=== PATIENT | female | born 1930 | race Caucasian/White ===

== ENCOUNTER 2017-08-07 09:56 | Emergency (ER) | payer MEDICARE, OTHER ==
[2017-08-07 12:14] LABS: Hematocrit 42 % (35-47); Hemoglobin 14.2 g/dl (12.0-16.0); Mean Corpuscular HGB Conc 34 g/dl (31-36); Mean Corpuscular Hemoglobin 31 pg (27-31); Mean Corpuscular Volume 90 fL (80-97); Mean Platelet Volume 9 um3 (7.4-10.4); Red Blood Count 4.65 10^6/ul (4.0-5.4); Red Cell Distribution Width 15 % (10.5-15); White Blood Count 8.6 10^3/ul (3.5-10.8)
--- NOTE | 2017-08-07 12:17 | RAD ---
INDICATION: Anxiety and confusion COMPARISON: Most recent comparison chest x-ray is dated December 12, 2014 TECHNIQUE: Single AP portable view of the chest was obtained. FINDINGS: Image quality is compromised due to the relative inferiority of a portable chest x-ray. The heart and mediastinum exhibit normal size and contour. The lungs are grossly clear. There is no evidence of a large pleural effusion. Visualized bones are normal for the patient's age. IMPRESSION: No radiographic evidence for acute cardiopulmonary abnormality on this portable chest x-ray.
[2017-08-07 12:33] LABS: ALT 18 U/L (7-52); AST 20 U/L (13-39); Albumin 4.2 g/dL (3.2-5.2); Alkaline Phosphatase 97 U/L (34-104); Anion Gap 8 mmol/L (2-11); BUN/Creatinine Ratio 25.2 (8-20); Blood Urea Nitrogen 27 mg/dL (6-24); CO2 Carbon Dioxide 26 mmol/L (22-32); Calcium 9.9 mg/dL (8.6-10.3); Chloride 104 mmol/L (101-111); Creatine Kinase 87 U/L (10-223); EGFR African American 62.5 (>60); EGFR Non-African American 48.6 (>60); Globulin 2.7 g/dL (2-4); Glucose 129 mg/dL (70-100); Potassium 3.6 mmol/L (3.5-5.0); Sodium 138 mmol/L (133-145); Total Protein 6.9 g/dL (6.4-8.9)
[2017-08-07 12:45] LABS: Alcohol < 10 mg/dL (<10)
--- NOTE | 2017-08-07 13:24 | RAD ---
INDICATION: Altered mental status COMPARISON: Similar CT of the brain December 10, 2013 TECHNIQUE: Contiguous axial sections of the brain were obtained from the skull base to the vertex without contrast. FINDINGS: The ventricles, cisterns and sulci mild symmetrical involutional changes. There is mild periventricular and subcortical white matter hypoattenuation, similar in appearance to the prior CT the brain and most consistent with chronic microvascular disease. The juarez-white matter differentiation is adequately maintained and there is no sulcal effacement. No significant focal abnormality or mass effect is present. There is no evidence for intracranial hemorrhage. No significant focal osseous abnormality is present. The visualized portion of the paranasal sinuses and mastoid air cells appear clear. IMPRESSION: Stable appearing chronic findings as described above without CT apparent acute intracranial abnormality.
[2017-08-07 14:33] LABS: Urine Bacteria Absent (Absent); Urine Bilirubin Negative (Negative); Urine Glucose Negative (Negative); Urine Nitrite Negative (Negative)
[2017-08-07 14:36] VITALS: BP 141/82
--- NOTE | 2017-08-08 08:30 | ED ---
Hernan Thorpe Nikita, scribed for Zach Hoyos MD on 08/07/17 at 1056 . Complex/Multi-Sys Presentation - HPI Summary HPI Summary: This patient is an 87 year old F presenting to ED with a chief complaint of discomfort since last night at 2100 to this morning. The patient rates the pain 0/10 in severity. Symptoms aggravated by nothing. Symptoms alleviated by nothing. Patient reports confusion and anxiety. Pt reports she couldnt sleep last night. Patient denies a cough, fever, chills, dysuria, frequent urination, diarrhea, recent weakness, neck pain, back pain, abdominal pain, and swelling in legs bilaterally. Pt reports this is the first episode of this severity. Pt is not on any new medications. - History Of Current Complaint Chief Complaint: EDGeneral Time Seen by Provider: 08/07/17 10:18 Hx Obtained From: Patient Onset/Duration: Sudden Onset, Lasting Days, Resolved Severity Currently: None Aggravating Factor(s): nothing Alleviating Factor(s): nothing Associated Signs And Symptoms: Positive: Other - Pt reports she couldnt sleep last night. Patient denies a cough, fever, chills, dysuria, frequent urination, diarrhea, recent weakness, neck pain, back pain, abdominal pain, and swelling in legs bilaterally. - Allergies/Home Medications Allergies/Adverse Reactions: Allergies Allergy/AdvReac Type Severity Reaction Status Date / Time Alendronate [From Fosamax] Allergy Swelling Verified 08/07/17 10:06 PMH/Surg Hx/FS Hx/Imm Hx Endocrine/Hematology History: Reports: Hx Diabetes, Hx Thyroid Disease - takes med but denies Cardiovascular History: Reports: Hx Hypertension Denies: Hx Pacemaker/ICD Respiratory History: Denies: Hx Asthma, Hx Chronic Obstructive Pulmonary Disease (COPD) GI History: Denies: Hx Ulcer History: Denies: Hx Dialysis, Hx Renal Disease Musculoskeletal History: Denies: Hx Osteoporosis Sensory History: Denies: Hx Hearing Aid Psychiatric History: Denies: Hx Panic Disorder - Cancer History Hx Chemotherapy: No Hx Radiation Therapy: No - Surgical History Surgery Procedure, Year, and Place: 1971- HYSTERECTOMY. 2007 - GALLBLADDER. 2011 [facility] -Lt EYE- FOR GLAUCOMA. cataracts. CARDIAC CATHS- NO STENTING. TONSILS Infectious Disease History: No Infectious Disease History: Denies: Hx Clostridium Difficile, Hx Hepatitis, Hx Human Immunodeficiency Virus (HIV), Hx of Known/Suspected MRSA, Hx Shingles, Hx Tuberculosis, Hx Known/ Suspected VRE, Hx Known/Suspected VRSA, History Other Infectious Disease, Traveled Outside the [place] in Last 30 Days - Family History Known Family History: Positive: Cardiac Disease, Hypertension - Social History Alcohol Use: None Substance Use Type: Reports: None Smoking Status (MU): Former Smoker Type: Cigarettes Have You Smoked in the Last Year: No Review of Systems Negative: Fever, Chills Negative: Cough Negative: Abdominal Pain, Diarrhea Negative: dysuria, frequency Positive: Other - denies neck pain, back pain, and swelling in legs bilaterally Neurological: Other - confusion Negative: Weakness Positive: Anxious All Other Systems Reviewed And Are Negative: Yes Physical Exam - Summary Physical Exam Summary: GENERAL: ~Patient is a well-developed and nourished (MALE OR FEMALE) who is lying comfortable in the stretcher. ~Patient is not in any acute respiratory distress. HEAD AND FACE: No signs of trauma. ~No ecchymosis, hematomas or skull depressions. No sinus tenderness. EYES: PERRLA, EOMI x 2, No injected conjunctiva, no nystagmus. EARS: Hearing grossly intact. Ear canals and tympanic membranes are within normal limits. MOUTH: Oropharynx within normal limits. NECK: Supple, trachea is midline, no adenopathy, no JVD, no carotid bruit, no c- spine tenderness, neck with full ROM. CHEST: Symmetric, no tenderness at palpation LUNGS: Clear to auscultation bilaterally. No wheezing or crackles. CVS: Regular rate and rhythm, S1 and S2 present, no murmurs or gallops appreciated. ABDOMEN: Soft, non-tender. No signs of distention. No rebound no guarding, and no masses palpated. Bowel sounds are normal. EXTREMITIES: FROM in all major joints, no edema, no cyanosis or clubbing. NEURO: Alert and oriented x 3. No acute neurological deficits. Speech is normal and follows commands. SKIN: Dry and warm Triage Information Reviewed: Yes Vital Signs On Initial Exam: Initial Vitals Temp Pulse Resp BP Pulse Ox 97.1 F 64 16 170/60 98 08/07/17 10:02 08/07/17 10:02 08/07/17 10:02 08/07/17 10:02 08/07/17 10:02 Vital Signs Reviewed: Yes - Divya Coma Scale Coma Scale Total: 15 Diagnostics - Vital Signs Vital Signs Temp Pulse Resp BP Pulse Ox 08/07/17 10:02 97.1 F 64 16 170/60 98 - Laboratory Result Diagrams: 08/07/17 11:52 08/07/17 11:52 Lab Statement: Any lab studies that have been ordered have been reviewed, and results considered in the medical decision making process. - Radiology CXR Radiology Interpretation Completed By: Radiologist - No radiographic evidence for acute cardiopulmonary abnormality on this portable chest x-ray. ED physician has reviewed this radiology report and agrees. - CT Brain CT CT Interpretation Completed By: Radiologist - Stable appearing chronic findings as described above without CT apparent acute intracranial abnormality. ED physician has reviewed this radiology report and agrees. - EKG 1204 Cardiac Rate: Bradycardia - 57 bpm EKG Interpretation: no ST elevations, Q wave in II and AVF Re-Evaluation - Re-Evaluation First Eval Re-Evaluation Time: 14:50 Comment: Discussed with pt about discharge plan. Complex Multi-Symp Course/Dx Assessment/Plan: This patient is an 87 year old F presenting to ED with a chief complaint of discomfort since last night at 2100 to this morning. The patient rates the pain 0/10 in severity. Symptoms aggravated by nothing. Symptoms alleviated by nothing. Patient reports confusion and anxiety. Pt reports she couldnt sleep last night. Patient denies a cough, fever, chills, dysuria, frequent urination, diarrhea, recent weakness, neck pain, back pain, abdominal pain, and swelling in legs bilaterally. Brain CT reveals stable appearing chronic findings as described above without CT apparent acute intracranial abnormality. CXR reveals no radiographic evidence for acute cardiopulmonary abnormality on this portable chest x-ray. ED physician has reviewed this radiology report and agrees. EKG reveals sinus bradycardia at 57 bpm, no ST elevations, and Q wave in II and AVF. Blood work is without significant abnormalities except for increase in BUN and creatinine, possibly secondary to dehydration. Urinalysis is negative for UTI. Head CT shows no acute intracranial pathology. Since pt is asymptomatic, pt will be staying with family members. Pt will be discharged home with f/u with PCP. - Diagnoses Provider Diagnoses: Confusion Discharge - Discharge Plan Condition: Stable Disposition: HOME Patient Education Materials: Altered Mental Status (ED) Referrals: Tim Navarro MD [Primary Care Provider] - 3 Days The documentation as recorded by the Hernan loco Nikita accurately reflects the service I personally performed and the decisions made by me, Zach Hoyos MD.
== END 2017-08-07 15:09 | disposition home or self-care (01) ==
LOC: ED 09:56
DX: R41.0 Disorientation, unspecified (principal); F41.9 Anxiety disorder, unspecified; Z87.891 Personal history of nicotine dependence
CPT/HCPCS: 36415; 70450; 71010; 80053; 80320; 81003; 81015; 82140; 82550; 83735; 84443; 84484; 85025; 93005; 99283; G0480

== ENCOUNTER 2017-09-07 12:24 | Emergency (ER) | payer MEDICARE, OTHER ==
[2017-09-07 14:45] LABS: Hematocrit 42 % (35-47); Hemoglobin 13.7 g/dl (12.0-16.0); Mean Corpuscular HGB Conc 33 g/dl (31-36); Mean Corpuscular Hemoglobin 29 pg (27-31); Mean Corpuscular Volume 90 fL (80-97); Mean Platelet Volume 9 um3 (7.4-10.4); Red Blood Count 4.67 10^6/ul (4.0-5.4); Red Cell Distribution Width 14 % (10.5-15); White Blood Count 12.5 10^3/ul (3.5-10.8)
--- NOTE | 2017-09-07 14:53 | RAD ---
HISTORY: Cough, back pain COMPARISONS: August 07, 2017 VIEWS: 4: Frontal dual-energy and lateral views of the chest. FINDINGS: CARDIOMEDIASTINAL SILHOUETTE: The cardiomediastinal silhouette is normal. DAVID: The david are normal. PLEURA: The costophrenic angles are sharp. No pleural abnormalities are noted. LUNG PARENCHYMA: The lungs are clear. ABDOMEN: The upper abdomen is clear. There is no subphrenic gas. BONES AND SOFT TISSUES: No bone or soft tissue abnormalities are noted. OTHER: None. IMPRESSION: NO ACTIVE CARDIOPULMONARY DISEASE.
[2017-09-07 15:01] LABS: BUN/Creatinine Ratio 24.2 (8-20); Calcium 10.1 mg/dL (8.6-10.3); EGFR African American 68.4 (>60); EGFR Non-African American 53.2 (>60); Globulin 3.1 g/dL (2-4); Magnesium 1.8 mg/dL (1.9-2.7); Potassium 3.3 mmol/L (3.5-5.0); Total Bilirubin 0.7 mg/dL (0.2-1.0); Total Protein 7.1 g/dL (6.4-8.9)
--- NOTE | 2017-09-07 15:21 | ED ---
Throat Pain/Nasal Congestion - HPI Summary HPI Summary: 87F presents with cough, sinus congestion, back pain, and fatigue for 5 days. She denies any fever or chills. She states she just feels like she has a cold but wants to be sure. She denies any chest pain or SOB. She denies any abdominal pain, n/v/d. She states cough is dry. She denies any headache, dizziness, AMS, ear pain or sore throat. She states this is not the flu as we got her flu shot. She denies any history of COPD or HTN. She has history of HTN and DM. She has not seen her primary for this yet. She has a normal appetite. She states she did not take her medication or eat anything this morning because she forgot. She states pain in back is near right shoulder blade and started after coughing. She denies any dysuria. She denies any loss of bowel or bladder or saddle anaesthesia. She denies any history of CAD. - History of Current Complaint Chief Complaint: EDGeneral Time Seen by Provider: 09/07/17 13:25 - Allergies/Home Medications Allergies/Adverse Reactions: Allergies Allergy/AdvReac Type Severity Reaction Status Date / Time Alendronate [From Fosamax] Allergy Swelling Verified 08/07/17 10:06 PMH/Surg Hx/FS Hx/Imm Hx Endocrine/Hematology History: Reports: Hx Diabetes, Hx Thyroid Disease - takes med but denies Cardiovascular History: Reports: Hx Hypertension Denies: Hx Pacemaker/ICD Respiratory History: Denies: Hx Asthma, Hx Chronic Obstructive Pulmonary Disease (COPD) GI History: Denies: Hx Ulcer History: Denies: Hx Dialysis, Hx Renal Disease Musculoskeletal History: Denies: Hx Osteoporosis Sensory History: Denies: Hx Hearing Aid Psychiatric History: Denies: Hx Panic Disorder - Cancer History Hx Chemotherapy: No Hx Radiation Therapy: No - Surgical History Surgery Procedure, Year, and Place: 1971- HYSTERECTOMY. 2007 - GALLBLADDER. 2011 [facility] -Lt EYE- FOR GLAUCOMA. cataracts. CARDIAC CATHS- NO STENTING. TONSILS Infectious Disease History: No Infectious Disease History: Denies: Hx Clostridium Difficile, Hx Hepatitis, Hx Human Immunodeficiency Virus (HIV), Hx of Known/Suspected MRSA, Hx Shingles, Hx Tuberculosis, Hx Known/ Suspected VRE, Hx Known/Suspected VRSA, History Other Infectious Disease, Traveled Outside the [place] in Last 30 Days - Family History Known Family History: Positive: Unknown, Cardiac Disease, Hypertension - Social History Alcohol Use: None Substance Use Type: Reports: None Smoking Status (MU): Former Smoker Type: Cigarettes Have You Smoked in the Last Year: No Review of Systems Negative: Fever Negative: Chest Pain Positive: Cough. Negative: Shortness Of Breath Negative: Abdominal Pain Positive: Myalgia - back All Other Systems Reviewed And Are Negative: Yes Physical Exam Triage Information Reviewed: Yes Vital Signs On Initial Exam: Initial Vitals Temp Pulse Resp BP Pulse Ox 98 F 86 18 154/90 97 09/07/17 12:26 09/07/17 12:26 09/07/17 12:26 09/07/17 12:26 09/07/17 12:26 Vital Signs Reviewed: Yes Appearance: Positive: Well-Appearing Skin: Positive: Warm, Dry Head/Face: Positive: Normal Head/Face Inspection Eyes: Positive: Normal, EOMI, FELIX, Conjunctiva Clear ENT: Positive: Normal ENT inspection, Pharynx normal, Nasal congestion, TMs normal. Negative: Sinus tenderness Neck: Positive: Supple, Nontender, No Lymphadenopathy Respiratory/Lung Sounds: Positive: Clear to Auscultation, Breath Sounds Present Cardiovascular: Positive: Normal, RRR Abdomen Description: Positive: Nontender, Soft Bowel Sounds: Positive: Present Musculoskeletal: Positive: Strength/ROM Intact - back, Other - tenderness over right side of upper back, no midline tenderness Neurological: Positive: Normal, Reflexes Intact - biceps Psychiatric: Positive: Normal - [place] Coma Scale Coma Scale Total: 15 Diagnostics - Vital Signs Vital Signs Temp Pulse Resp BP Pulse Ox 09/07/17 12:26 98 F 86 18 154/90 97 - Laboratory Lab Results: Lab Results 09/07/17 09/07/17 09/07/17 Range/Units 14:35 14:35 14:35 WBC 12.5 H (3.5-10.8) 10^3/ul RBC 4.67 (4.0-5.4) 10^6/ul Hgb 13.7 (12.0-16.0) g/dl Hct 42 (35-47) % MCV 90 (80-97) fL MCH 29 (27-31) pg MCHC 33 (31-36) g/dl RDW 14 (10.5-15) % Plt Count 230 (150-450) 10^3/ul MPV 9 (7.4-10.4) um3 Neut % (Auto) 70.1 (38-83) % Lymph % (Auto) 17.4 L (25-47) % Falls % (Auto) 9.2 H (1-9) % Eos % (Auto) 2.7 (0-6) % Baso % (Auto) 0.6 (0-2) % Absolute Neuts (auto) 8.8 H (1.5-7.7) 10^3/ul Absolute Lymphs (auto) 2.2 (1.0-4.8) 10^3/ul Absolute Monos (auto) 1.2 H (0-0.8) 10^3/ul Absolute Eos (auto) 0.3 (0-0.6) 10^3/ul Absolute Basos (auto) 0.1 (0-0.2) 10^3/ul Absolute Nucleated RBC 0 10^3/ul Nucleated RBC % 0 D-Dimer, Quantitative (Less Than 230) ng/mL Sodium 134 (133-145) mmol/L Potassium 3.3 L (3.5-5.0) mmol/L Chloride 98 L (101-111) mmol/L Carbon Dioxide 29 (22-32) mmol/L Anion Gap 7 (2-11) mmol/L BUN 24 (6-24) mg/dL Creatinine 0.99 H (0.51-0.95) mg/dL Est GFR ( Amer) 68.4 (>60) Est GFR (Non-Af Amer) 53.2 (>60) BUN/Creatinine Ratio 24.2 H (8-20) Glucose 120 H (70-100) mg/dL Lactic Acid (0.5-2.0) mmol/L Calcium 10.1 (8.6-10.3) mg/dL Magnesium 1.8 L (1.9-2.7) mg/dL Total Bilirubin 0.70 (0.2-1.0) mg/dL AST 19 (13-39) U/L ALT 14 (7-52) U/L Alkaline Phosphatase 98 (34-104) U/L Troponin I 0.00 (<0.04) ng/mL B-Natriuretic Peptide 47 ( - 100) pg/mL Total Protein 7.1 (6.4-8.9) g/dL Albumin 4.0 (3.2-5.2) g/dL Globulin 3.1 (2-4) g/dL Albumin/Globulin Ratio 1.3 (1-3) Influenza A (Rapid) (Negative) Influenza B (Rapid) (Negative) 09/07/17 09/07/17 09/07/17 Range/Units 14:35 14:35 14:55 WBC (3.5-10.8) 10^3/ul RBC (4.0-5.4) 10^6/ul Hgb (12.0-16.0) g/dl Hct (35-47) % MCV (80-97) fL MCH (27-31) pg MCHC (31-36) g/dl RDW (10.5-15) % Plt Count (150-450) 10^3/ul MPV (7.4-10.4) um3 Neut % (Auto) (38-83) % Lymph % (Auto) (25-47) % Falls % (Auto) (1-9) % Eos % (Auto) (0-6) % Baso % (Auto) (0-2) % Absolute Neuts (auto) (1.5-7.7) 10^3/ul Absolute Lymphs (auto) (1.0-4.8) 10^3/ul Absolute Monos (auto) (0-0.8) 10^3/ul Absolute Eos (auto) (0-0.6) 10^3/ul Absolute Basos (auto) (0-0.2) 10^3/ul Absolute Nucleated RBC 10^3/ul Nucleated RBC % D-Dimer, Quantitative < 200 (Less Than 230) ng/mL Sodium (133-145) mmol/L Potassium (3.5-5.0) mmol/L Chloride (101-111) mmol/L Carbon Dioxide (22-32) mmol/L Anion Gap (2-11) mmol/L BUN (6-24) mg/dL Creatinine (0.51-0.95) mg/dL Est GFR ( Amer) (>60) Est GFR (Non-Af Amer) (>60) BUN/Creatinine Ratio (8-20) Glucose (70-100) mg/dL Lactic Acid 0.8 (0.5-2.0) mmol/L Calcium (8.6-10.3) mg/dL Magnesium (1.9-2.7) mg/dL Total Bilirubin (0.2-1.0) mg/dL AST (13-39) U/L ALT (7-52) U/L Alkaline Phosphatase (34-104) U/L Troponin I (<0.04) ng/mL B-Natriuretic Peptide ( - 100) pg/mL Total Protein (6.4-8.9) g/dL Albumin (3.2-5.2) g/dL Globulin (2-4) g/dL Albumin/Globulin Ratio (1-3) Influenza A (Rapid) Negative (Negative) Influenza B (Rapid) Negative (Negative) Result Diagrams: 09/07/17 14:35 09/07/17 14:35 Lab Statement: Any lab studies that have been ordered have been reviewed, and results considered in the medical decision making process. EENT Course/Dx - Course Course Of Treatment: 87F presents with cough, sinus congestion, back pain, and fatigue for 5 days. She denies any fever or chills. She states she just feels like she has a cold but wants to be sure. She denies any chest pain or SOB. She denies any abdominal pain, n/v/d. She states cough is dry. She denies any headache, dizziness, AMS, ear pain or sore throat. She states this is not the flu as we got her flu shot. She denies any history of COPD or HTN. She has history of HTN and DM. She has not seen her primary for this yet. She has a normal appetite. She states she did not take her medication or eat anything this morning because she forgot. She states pain in back is near right shoulder blade and started after coughing. She denies any history of CAD. on exam nasal congestion present, lungs CTA, tenderness on right side of upper back, no midline tenderness. chest xray normal. labs wbc 12 with no left shift. flu neg. potassium 3.3. patient states did not take vitamins this morning which has potassium. able to tolerate PO intake so will not supplement at this time. bnp, troponin and d-dimer neg. explained likely viral. told to follow up with primary. patient understand and agrees with plan. - Differential Diagnoses Differential Diagnoses: Sinusitis, URI/Bronchitis, Other - CHF - Diagnoses Provider Diagnoses: Upper respiratory infection Discharge - Discharge Plan Condition: Good Disposition: HOME Prescriptions: Benzonatate CAP* [Tessalon 100 MG CAP*] 100 mg PO TID PRN #15 cap PRN Reason: Cough Patient Education Materials: Upper Respiratory Infection (ED) Referrals: Tim Navarro MD [Primary Care Provider] - Additional Instructions: Use Tessalon three times a day for cough Use saline in the nose for nasal congestion Use humidifier or place warm bowls of water around the room for cough Take Tylenol for pain/fever every 6 hours Increase fluid intake and eat small amounts of food as tolerated Follow up with primary with a week Return to ED if develop chest pain , shortness of breath, or any new or worsening symptoms
[2017-09-07 16:21] LABS: Urine Bacteria Absent (Absent); Urine Bilirubin Negative (Negative); Urine Glucose Negative (Negative); Urine Nitrite Negative (Negative)
[2017-09-07 16:40] VITALS: BP 126/90
== END 2017-09-07 16:39 | disposition home or self-care (01) ==
LOC: ED 12:24
DX: J06.9 Acute upper respiratory infection, unspecified (principal); Z87.891 Personal history of nicotine dependence; I10 Essential (primary) hypertension; E11.9 Type 2 diabetes mellitus without complications; E07.9 Disorder of thyroid, unspecified
CPT/HCPCS: 36415; 71020; 80053; 81003; 81015; 83605; 83735; 83880; 84484; 85025; 85379; 87502; 99282

== ENCOUNTER 2017-12-27 20:44 | Emergency (ER) | payer MEDICARE, OTHER ==
[2017-12-27 22:33] VITALS: BP 109/59
--- NOTE | 2017-12-28 03:03 | ED ---
Dinora Thorpe Julia, scribed for Karla Cardozo MD on 12/27/17 at 2223 . Syncope/Near Syncope - HPI Summary HPI Summary: This patient is a 87 year old F [facility] son with due to an episode lasting about 45 seconds where she stopped breathing with subsequent sporadic breathing for an hour afterward. Son states she took 7.5mg of Hydrocodone at 17:00, as prescribed after three tooth extractions today at 15 :00. Her son states she was dizzy and loopy prior to arrival. Patient denies current nausea, pain, and dizziness. She repeats that she is sleepy. Medications reviewed. - History Of Current Complaint Chief Complaint: EDGeneral Time Seen by Provider: 12/27/17 22:15 Hx Obtained From: Patient, Family/Counselor Manager Onset/Duration: Lasting Hours, Still Present, Resolved Timing: Intermittent Episode Lasting - 45 secons - not breathing Context: Witnessed Activity At Onset: At Rest Associated Head Trauma: No Aggravating Factor(s): Other - medication Associated Signs And Symptoms: Other - respiratory symptoms, dizziness - Allergies/Home Medications Allergies/Adverse Reactions: Allergies Allergy/AdvReac Type Severity Reaction Status Date / Time alendronate sodium Allergy Hives Verified 12/27/17 20:53 [From Fosamax] PMH/Surg Hx/FS Hx/Imm Hx Endocrine/Hematology History: Reports: Hx Diabetes, Hx Thyroid Disease - takes med but denies Cardiovascular History: Reports: Hx Hypertension Denies: Hx Pacemaker/ICD Respiratory History: Denies: Hx Asthma, Hx Chronic Obstructive Pulmonary Disease (COPD) GI History: Denies: Hx Ulcer History: Denies: Hx Dialysis, Hx Renal Disease Musculoskeletal History: Denies: Hx Osteoporosis Sensory History: Denies: Hx Hearing Aid Psychiatric History: Denies: Hx Panic Disorder - Cancer History Hx Chemotherapy: No Hx Radiation Therapy: No - Surgical History Surgery Procedure, Year, and Place: 1971- HYSTERECTOMY. 2007 - GALLBLADDER. 2011 [facility] -Lt EYE- FOR GLAUCOMA. cataracts. CARDIAC CATHS- NO STENTING. Tooth extraction, 2018. TONSILS Infectious Disease History: No Infectious Disease History: Denies: Hx Clostridium Difficile, Hx Hepatitis, Hx Human Immunodeficiency Virus (HIV), Hx of Known/Suspected MRSA, Hx Shingles, Hx Tuberculosis, Hx Known/ Suspected VRE, Hx Known/Suspected VRSA, History Other Infectious Disease, Traveled Outside the [place] in Last 30 Days - Family History Known Family History: Positive: Cardiac Disease, Hypertension - Social History Lives: Alone Alcohol Use: None Substance Use Type: Reports: None Smoking Status (MU): Former Smoker Type: Cigarettes Have You Smoked in the Last Year: No Review of Systems Positive: Other - "sleepy" Positive: Other - stopped breathing followed by sporadic breathing Neurological: Other - dizziness, currently resolved All Other Systems Reviewed And Are Negative: Yes Physical Exam - Summary Physical Exam Summary: VITAL SIGNS: Reviewed. GENERAL: Patient is a well-developed and nourished female who is lying comfortable in the stretcher. Patient is not in any acute respiratory distress. HEAD AND FACE: No signs of trauma. No ecchymosis, hematomas or skull depressions. No sinus tenderness. EYES: PERRLA, EOMI x 2, No injected conjunctiva, no nystagmus. EARS: Hearing grossly intact. Ear canals and tympanic membranes are within normal limits. MOUTH: Oropharynx within normal limits. NECK: Supple, trachea is midline, no adenopathy, no JVD, no carotid bruit, no c- spine tenderness, neck with full ROM. CHEST: Symmetric, no tenderness at palpation LUNGS: Clear to auscultation bilaterally. No wheezing or crackles. CVS: Regular rate and rhythm, S1 and S2 present, no murmurs or gallops appreciated. ABDOMEN: Soft, non-tender. No signs of distention. No rebound no guarding, and no masses palpated. Bowel sounds are normal. EXTREMITIES: FROM in all major joints, no edema, no cyanosis or clubbing. Triage Information Reviewed: Yes Vital Signs On Initial Exam: Initial Vitals Temp Pulse Resp BP Pulse Ox 98.4 F 66 15 120/61 96 12/27/17 20:45 12/27/17 20:45 12/27/17 20:45 12/27/17 20:45 12/27/17 20:45 Vital Signs Reviewed: Yes Diagnostics - Vital Signs Vital Signs Temp Pulse Resp BP Pulse Ox 12/27/17 20:45 98.4 F 66 15 120/61 96 - Laboratory Lab Statement: Any lab studies that have been ordered have been reviewed, and results considered in the medical decision making process. Course/Dx Course Of Treatment: Patient is brought to the ED due to an episode lasting about 45 seconds where she stopped breathing with subsequent sporadic breathing for an hour afterward. Son states she took 7.5mg of Hydrocodone at 17:00, as prescribed after three tooth extractions today at 15:00. Patient ambulated well in the ED, with steady gait and no dizziness. Patient is instructed to stop taking the Vicodin. - Diagnoses Provider Diagnoses: Medication side effect Discharge - Discharge Plan Condition: Stable Disposition: HOME Patient Education Materials: Tooth Extraction (DC) Referrals: Tim Navarro MD [Primary Care Provider] - If Needed Additional Instructions: Stop taking the Vicodin. Take Tylenol for pain instead. RETURN TO THE EMERGENCY DEPARTMENT FOR CHANGING OR WORSENING SYMPTOMS. The documentation as recorded by the Dinora loco Julia accurately reflects the service I personally performed and the decisions made by me, Karla Cardozo MD.
== END 2017-12-27 22:37 | disposition home or self-care (01) ==
LOC: ED 20:44
DX: T40.2X5A Adverse effect of other opioids, initial encounter (principal); R42 Dizziness and giddiness; Z87.891 Personal history of nicotine dependence; Y92.9 Unspecified place or not applicable; E11.9 Type 2 diabetes mellitus without complications
CPT/HCPCS: 99282

== ENCOUNTER 2018-02-01 13:35 | Emergency (ER) | payer MEDICARE, OTHER ==
--- NOTE | 2018-02-01 14:36 | RAD ---
INDICATION: Left wrist injury. TECHNIQUE: 3 views of the left wrist were obtained. FINDINGS: There is diffuse soft tissue swelling present. There is a transverse slightly comminuted impacted fracture of the distal radial metaphysis. The distal fragment is displaced one half shaft diameter posterior relative the proximal fragment and demonstrate mild posterior angulation relative the proximal fragment. IMPRESSION: TRANSVERSE, DISPLACED, ANGULATED FRACTURE OF THE DISTAL RADIUS.
--- NOTE | 2018-02-01 15:18 | RAD ---
INDICATION: Fall COMPARISON: None TECHNIQUE: PA and lateral dual-energy views were obtained. FINDINGS: Bones/Soft Tissues: There are no acute bony findings. Cardiomediastinal: The cardiomediastinal silhouette is normal. Lungs: There are no infiltrates. Pleura: There are no pleural effusions. Other: None IMPRESSION: NO ACTIVE DISEASE
--- NOTE | 2018-02-01 15:24 | RAD ---
INDICATION: Intracranial injury COMPARISON: CT brain August 07, 2017 TECHNIQUE: Noncontrast axial source images were acquired from the skull base to the vertex. FINDINGS: Ventricles/sulci: There is minor cortical atrophy with compensatory dilatation of the CSF spaces. Brain parenchyma: There is mild periventricular and subcortical white matter change compatible with chronic ischemia. Intracranial hemorrhage:None. Extra-axial spaces: There are no abnormal extra axial fluid collections or evidence of extra-axial mass. Calvarium: There is no calvarial fracture or other calvarial abnormality. Scalp: There is no evidence of scalp or extracalvarial soft tissue abnormality. Paranasal sinuses/mastoid: The paranasal sinuses and mastoid air cells are clear. Other: None. IMPRESSION: MILD AGE-RELATED CHANGES. NO ACUTE FINDINGS
[2018-02-01 15:42] LABS: ABS Basophils 0.1 10^3/ul (0-0.2); ABS Eosinophils 0.3 10^3/ul (0-0.6); ABS Monocytes 0.9 10^3/ul (0-0.8); ABS Neutrophils 11.2 10^3/ul (1.5-7.7); ABS Nucleated RBC 0 10^3/ul; Eosinophil % 1.8 % (0-6); Hematocrit 39 % (35-47); Mean Corpuscular HGB Conc 33 g/dl (31-36); Mean Corpuscular Hemoglobin 30 pg (27-31); Mean Corpuscular Volume 89 fL (80-97); Mean Platelet Volume 8.6 um3 (7.4-10.4); Nucleated Red Blood Cells % 0; Platelet Count 231 10^3/ul (150-450); Red Blood Count 4.38 10^6/ul (4.0-5.4); Red Cell Distribution Width 15 % (10.5-15); White Blood Count 14.4 10^3/ul (3.5-10.8)
[2018-02-01 16:05] LABS: EGFR Non-African American 36.3 (>60)
--- NOTE | 2018-02-01 17:07 | ED ---
Upper Extremity Pain - HPI Summary HPI Summary: Patient is an 87-year-old female who presents emergency department for a head injury and a left wrist injury that occurred just prior to arrival. Patient states she was outside walking around her block and she suddenly fell and landed onto her left hand and struck her head. Denies loss of consciousness. Patient states she is unsure as to why she fell. She denies chest pain, shortness of breath, lightheadedness, dizziness, recent illness, unilateral weakness. Pt.'s son who is present states she has been seeing neurology for balance issues and is scheduled for a brain MRI. Symptoms are moderate in severity. Moving and touching lefts rest makes symptoms worse. Nothing makes symptoms better. Patient's son states she is at her baseline. - History of Current Complaint Hx Obtained From: Patient, Family/Observation Nurse <Elfego Henderson - Last Filed: 02/01/18 18:28> <Shabbir Rachel - Last Filed: 02/01/18 19:30> - History of Current Complaint Chief Complaint: EDTraumaMultiple Stated Complaint: FALL/LT ARM INJURY Time Seen by Provider: 02/01/18 14:29 - Allergies/Home Medications Allergies/Adverse Reactions: Allergies Allergy/AdvReac Type Severity Reaction Status Date / Time alendronate sodium Allergy Hives Verified 02/01/18 14:29 [From Fosamax] PMH/Surg Hx/FS Hx/Imm Hx Previously Healthy: Yes Endocrine/Hematology History: Reports: Hx Diabetes, Hx Thyroid Disease - takes med but denies Cardiovascular History: Reports: Hx Hypertension Denies: Hx Pacemaker/ICD Respiratory History: Denies: Hx Asthma, Hx Chronic Obstructive Pulmonary Disease (COPD) GI History: Denies: Hx Ulcer History: Denies: Hx Dialysis, Hx Renal Disease Musculoskeletal History: Denies: Hx Osteoporosis Sensory History: Denies: Hx Hearing Aid Psychiatric History: Denies: Hx Panic Disorder - Cancer History Hx Chemotherapy: No Hx Radiation Therapy: No - Surgical History Surgery Procedure, Year, and Place: 1971- HYSTERECTOMY. 2007 - GALLBLADDER. 2011 LASER -Lt EYE- FOR GLAUCOMA. cataracts. CARDIAC CATHS- NO STENTING. Tooth extraction, 2018. TONSILS Infectious Disease History: No Infectious Disease History: Denies: Hx Clostridium Difficile, Hx Hepatitis, Hx Human Immunodeficiency Virus (HIV), Hx of Known/Suspected MRSA, Hx Shingles, Hx Tuberculosis, Hx Known/ Suspected VRE, Hx Known/Suspected VRSA, History Other Infectious Disease, Traveled Outside the [place] in Last 30 Days - Family History Known Family History: Positive: Unknown, Cardiac Disease, Hypertension - Social History Occupation: Retired Lives: Alone Alcohol Use: None Substance Use Type: Reports: None Smoking Status (MU): Former Smoker Type: Cigarettes Have You Smoked in the Last Year: No <Elfego Henderson - Last Filed: 02/01/18 18:28> Review of Systems Constitutional: Negative Eyes: Negative ENT: Negative Negative: Palpitations, Chest Pain Negative: Shortness Of Breath, Cough Negative: Abdominal Pain, Vomiting, Diarrhea Positive: Other - pain and deformity to left wrist Negative: Headache, Weakness, Paresthesia, Numbness, Syncope All Other Systems Reviewed And Are Negative: Yes <Elfego Henderson - Last Filed: 02/01/18 18:28> Physical Exam Triage Information Reviewed: Yes Vital Signs On Initial Exam: Initial Vitals Temp Pulse Resp BP Pulse Ox 98.8 F 74 16 157/78 97 02/01/18 13:51 02/01/18 13:51 02/01/18 13:51 02/01/18 13:51 02/01/18 13:51 Vital Signs Reviewed: Yes Appearance: Positive: Well-Appearing - Patient sitting in a wheel chair in no acute distress. Son present. Pleasant Skin: Positive: Warm, Dry Head/Face: Positive: Other - Hematoma noted to the right side of the forehead without laceration. Neck: Positive: Supple, Nontender Musculoskeletal: Positive: Other - Obvious deformity noted to the left distal forearm. No breaks in the skin. Good palpable radial pulse. No proximal injuries. <Elfego Henderson - Last Filed: 02/01/18 18:28> Vital Signs On Initial Exam: Initial Vitals Temp Pulse Resp BP Pulse Ox 98.8 F 74 16 157/78 97 02/01/18 13:51 02/01/18 13:51 02/01/18 13:51 02/01/18 13:51 02/01/18 13:51 <Shabbir Rachel - Last Filed: 02/01/18 19:30> Procedures - Splinting Hand-Made Type: orthoglass Splint: sugar-tong Pre-Proc Neuro Vasc Exam: normal Post-Proc Neuro Vasc Exam: normal - Joint Reduction Joint Reduction Site: wrist (L) Conscious Sedation: No Reduction Attempts: 2 Pre-Procedure NV Exam: Yes Post Joint Reduction Film: joint reduced <Elfego Henderson - Last Filed: 02/01/18 18:28> - Procedure Summary Procedure Summary: I supervised the PA and performed hx and physical on this patient. I performed the wrist procedure. Hx: FOOSH to L wrist, forehead contusion. PE: Deformity to L distal radius, contusion to forehead. AAO. Plan: Reduce and splint wrist. Med eval, Ct. Procedure: 1. Hematoma block L wrist: for pain Desc: The L dorsal wrist was cleaned with alcohol. A total of 6cc of 0.5% bupivicaine was placed in the hematoma of the fracture. Pain relief was good. 2. Closed reduction of distal radius fracture: The patient was placed in finger traps and weights on her LUE after hematoma block for pain. She was left in traps for 10minutes. Following, the wrist was out to length. The wrist was distracted and the fracture reduced. Tolerated well with improved alignment which was confirmed on xray. 3. I assisted placement of a sugar tong splint placed by PA. OCL splint placed. NV intact following. <Shabbir Rachel - Last Filed: 02/01/18 19:30> Diagnostics - Vital Signs Vital Signs Temp Pulse Resp BP Pulse Ox 02/01/18 13:51 98.8 F 74 16 157/78 97 - Laboratory Lab Results: Lab Results 02/01/18 02/01/18 Range/Units 15:33 15:33 WBC 14.4 H (3.5-10.8) 10^3/ul RBC 4.38 (4.0-5.4) 10^6/ul Hgb 13.0 (12.0-16.0) g/dl Hct 39 (35-47) % MCV 89 (80-97) fL MCH 30 (27-31) pg MCHC 33 (31-36) g/dl RDW 15 (10.5-15) % Plt Count 231 (150-450) 10^3/ul MPV 8.6 (7.4-10.4) um3 Neut % (Auto) 77.5 (38-83) % Lymph % (Auto) 14.0 L (25-47) % Marin % (Auto) 6.3 (0-7) % Eos % (Auto) 1.8 (0-6) % Baso % (Auto) 0.4 (0-2) % Absolute Neuts (auto) 11.2 H (1.5-7.7) 10^3/ul Absolute Lymphs (auto) 2.0 (1.0-4.8) 10^3/ul Absolute Monos (auto) 0.9 H (0-0.8) 10^3/ul Absolute Eos (auto) 0.3 (0-0.6) 10^3/ul Absolute Basos (auto) 0.1 (0-0.2) 10^3/ul Absolute Nucleated RBC 0 10^3/ul Nucleated RBC % 0 Sodium 141 (139-145) mmol/L Potassium 3.6 (3.5-5.0) mmol/L Chloride 103 (101-111) mmol/L Carbon Dioxide 29 (22-32) mmol/L Anion Gap 9 (2-11) mmol/L BUN 23 (6-24) mg/dL Creatinine 1.38 H (0.51-0.95) mg/dL Est GFR ( Amer) 46.6 (>60) Est GFR (Non-Af Amer) 36.3 (>60) BUN/Creatinine Ratio 16.7 (8-20) Glucose 124 H (70-100) mg/dL Calcium 10.2 (8.6-10.3) mg/dL Magnesium 1.8 L (1.9-2.7) mg/dL Total Bilirubin 0.50 (0.2-1.0) mg/dL AST 18 (13-39) U/L ALT 16 (7-52) U/L Alkaline Phosphatase 89 (34-104) U/L Troponin I 0.03 (<0.04) ng/mL Total Protein 7.1 (6.4-8.9) g/dL Albumin 4.2 (3.2-5.2) g/dL Globulin 2.9 (2-4) g/dL Albumin/Globulin Ratio 1.4 (1-3) Result Diagrams: 02/01/18 15:33 02/01/18 15:33 Lab Statement: Any lab studies that have been ordered have been reviewed, and results considered in the medical decision making process. <Elfego Henderson - Last Filed: 02/01/18 18:28> - Vital Signs Vital Signs Temp Pulse Resp BP Pulse Ox 02/01/18 18:18 98.6 F 76 16 150/80 97 02/01/18 17:45 98.7 F 76 16 149/81 98 02/01/18 13:51 98.8 F 74 16 157/78 97 - Laboratory Lab Results: Lab Results 02/01/18 02/01/18 Range/Units 15:33 15:33 WBC 14.4 H (3.5-10.8) 10^3/ul RBC 4.38 (4.0-5.4) 10^6/ul Hgb 13.0 (12.0-16.0) g/dl Hct 39 (35-47) % MCV 89 (80-97) fL MCH 30 (27-31) pg MCHC 33 (31-36) g/dl RDW 15 (10.5-15) % Plt Count 231 (150-450) 10^3/ul MPV 8.6 (7.4-10.4) um3 Neut % (Auto) 77.5 (38-83) % Lymph % (Auto) 14.0 L (25-47) % Marin % (Auto) 6.3 (0-7) % Eos % (Auto) 1.8 (0-6) % Baso % (Auto) 0.4 (0-2) % Absolute Neuts (auto) 11.2 H (1.5-7.7) 10^3/ul Absolute Lymphs (auto) 2.0 (1.0-4.8) 10^3/ul Absolute Monos (auto) 0.9 H (0-0.8) 10^3/ul Absolute Eos (auto) 0.3 (0-0.6) 10^3/ul Absolute Basos (auto) 0.1 (0-0.2) 10^3/ul Absolute Nucleated RBC 0 10^3/ul Nucleated RBC % 0 Sodium 141 (139-145) mmol/L Potassium 3.6 (3.5-5.0) mmol/L Chloride 103 (101-111) mmol/L Carbon Dioxide 29 (22-32) mmol/L Anion Gap 9 (2-11) mmol/L BUN 23 (6-24) mg/dL Creatinine 1.38 H (0.51-0.95) mg/dL Est GFR ( Amer) 46.6 (>60) Est GFR (Non-Af Amer) 36.3 (>60) BUN/Creatinine Ratio 16.7 (8-20) Glucose 124 H (70-100) mg/dL Calcium 10.2 (8.6-10.3) mg/dL Magnesium 1.8 L (1.9-2.7) mg/dL Total Bilirubin 0.50 (0.2-1.0) mg/dL AST 18 (13-39) U/L ALT 16 (7-52) U/L Alkaline Phosphatase 89 (34-104) U/L Troponin I 0.03 (<0.04) ng/mL Total Protein 7.1 (6.4-8.9) g/dL Albumin 4.2 (3.2-5.2) g/dL Globulin 2.9 (2-4) g/dL Albumin/Globulin Ratio 1.4 (1-3) Result Diagrams: 02/01/18 15:33 02/01/18 15:33 Lab Statement: Any lab studies that have been ordered have been reviewed, and results considered in the medical decision making process. <Shabbir Rachel - Last Filed: 02/01/18 19:30> Course/Dx - Course Course Of Treatment: Patient presenting to the ER for a wrist and head injury. She is unsure of why she fell and therefore workup was ordered. She is afebrile with stable vital signs. Wrist x-ray shows a transverse, displaced, fracture the distal radius, reading per radiology. Pt. examined by Dr. Rachel who placed a hematoma block with 10cc bupivacaine and place in finger traps and gentle traction. Dr. Rachel then reduced fx and repeat xray obtained which shows better alignment. Sugar tong splint placed. Before discharge pt. started c /o paresthesias to left 5th digit. Splint was slightly loosened but she has good capillary refill and pulses. Dr. Rachel spoke with letha logan, Dr. Alvarez, and he will see pt. tomorrow morning. Pt.s lab show a WBC of 14.4K and mild increased in cr at 1.3. Negative trop. ECG done at 1547 shows a sinus rhythm of 62 bpm, normal axis, appropriate intervals, no ST elevation or depression. Head CT is negative for acute fings, reading per radiology. CXR negative for acute findings, per radiology. Pt. is comfortable going home tonight. Her son is going to stay with her tonight. Rx for Tylenol 3 sent to pharmacy. Pt. to return to ER tonight if symptoms change or worsen. - Diagnoses Differential Diagnosis/HQI/PQRI: Positive: Fracture (Closed), Hematoma, Strain, Sprain <Elfego Henderson - Last Filed: 02/01/18 18:28> <Shabbir Rachel - Last Filed: 02/01/18 19:30> - Diagnoses Provider Diagnoses: Fall, Radial fracture, Head injury Discharge - Sign-Out/Discharge Documenting (check all that apply): Discharge - Billing Disposition and Condition Condition: STABLE Disposition: HOME <Elfego Henderson - Last Filed: 02/01/18 18:28> - Billing Disposition and Condition Condition: STABLE Disposition: HOME <Shabbir Rachel - Last Filed: 02/01/18 19:30> - Discharge Plan Condition: Stable Disposition: HOME Prescriptions: Acetaminop/Codeine 30 MG TAB* [Tylenol/Codeine 30 MG TAB*] 1 tab PO Q6H PRN #12 tab MDD 4 tablets PRN Reason: Pain Patient Education Materials: Wrist Fracture in Adults (ED) Referrals: Taurus Alvarez MD [Medical Doctor] - Ganesh Byrd MD [Primary Care Provider] - Additional Instructions: Dr. Alvarez will see you in the orthopedic clinic tomorrow, 02/02/18, morning. Call in the morning for appointment time Keep splint in place Ice and elevate Tylenol for pain as directed Return to ER if symptoms change or worsen
--- NOTE | 2018-02-01 18:24 | RAD ---
INDICATION: Traumatic fracture of the left wrist status post external reduction. COMPARISON: Comparison is made with a prior study of the same day. TECHNIQUE: 2 views of the left wrist were obtained. FINDINGS: The bones are visualized through a fiberglass cast. Again note is made of a transverse comminuted fracture of the distal radial metaphysis. The bones are in improved alignment and positioning. IMPRESSION: FRACTURE OF THE DISTAL RADIUS STATUS POST EXTERNAL REDUCTION.
[2018-02-01 18:31] VITALS: BP 150/80
== END 2018-02-01 18:18 | disposition home or self-care (01) ==
LOC: ED 13:35
DX: S52.90XA Unspecified fracture of unspecified forearm, initial encounter for closed fracture (principal); S09.90XA Unspecified injury of head, initial encounter; W19.XXXA Unspecified fall, initial encounter; Y92.9 Unspecified place or not applicable
CPT/HCPCS: 36415; 70450; 71045; 80053; 83735; 84484; 85025; 93005; 99282

== ENCOUNTER 2018-02-08 07:27 | Day surgery (SDC) | payer MEDICARE, OTHER ==
--- NOTE | 2018-02-03 12:34 | HP ---
AMENDED REPORT NOW INCLUDES COSIGNER DESIGNATION - ESIGNED BEFORE ADJUSTMENT PREOPERATIVE HISTORY AND PHYSICAL: DATE OF ADMISSION/SURGERY: 02/08/18 DATE OF OFFICE VISIT/ENCOUNTER: 02/02/18 ATTENDING SURGEON: Yarelis Crowell MD * (DICTATED BY MAJOR STILL) PRIMARY CARE PHYSICIAN: Dr. Byrd. SENIOR ORACLE DATABASE ADMINISTRATOR: Dr. Tomas. PROCEDURE: Open reduction and internal fixation, left wrist. CHIEF COMPLAINT: Left wrist fracture. HISTORY OF PRESENT ILLNESS: This is an 87-year-old female, who sustained injury to her left wrist on 01/29/18. She was out walking and she reports that she felt like on occasion she was walking too fast and could not quite slow herself down. She stopped herself a couple of times by leaning on whatever structure was available near the sidewalk; however, at one point, she lost her balance and fell forward on an outstretched left arm. A woman in a nearby house was able to come to her rescue and took her home. She was then transported by her son to [facility] Emergency Department. X-rays showed a displaced left wrist fracture. Closed reduction was performed by the emergency room doctor and the patient was placed in a sugar-tong splint. Post reduction x-rays showed improvement; however, there is still residual deformity. The patient denies any numbness or tingling. She reports that she did not lose consciousness when she fell, but she did suffer an abrasion to the right side of her forehead. She has a history of carotid stenosis, ataxia, and mild cognitive impairment along with some other medical issues. We will receive clearance from her java software, Dr. Tomas, prior to proceeding with surgery. PAST MEDICAL HISTORY: 1. History of carotid stenosis. 2. History of ataxia. 3. Diabetes. 4. Hyperlipidemia. 5. Hypertension. 6. Hypothyroidism. 7. Glaucoma. 8. Gout. 9. History of mild cognitive impairment. 10. Osteoporosis. PAST SURGICAL HISTORY: 1. Hysterectomy. 2. Cholecystectomy. 3. Tonsillectomy. 4. Bilateral cataracts. CURRENT MEDICATIONS: 1. Allopurinol 150 mg daily. 2. Alphagan 0.1% one drop both eyes daily. 3. Aspirin low dose 81 mg daily. 4. Atorvastatin calcium 40 mg daily. 5. Dorzolamide HCl/timolol maleate 22.3/6.8 one drop both eyes b.i.d. 6. Levothyroxine sodium 50 mcg daily. 7. Metformin HCl 500 mg daily. 8. Metoprolol tartrate 25 mg b.i.d. 9. Travatan Z 0.004% one drop both eyes daily. 10. Triamterene/hydrochlorothiazide 37.5/25 mg q. day. 11. Vitamin D 2000 units daily. ALLERGIES: FOSAMAX causes blisters. FAMILY MEDICAL HISTORY: Heart disease and pancreatic cancer. SOCIAL HISTORY: The patient lives alone at home. She is a former smoker, she quit in 1989. Prior to that, she smoked up to a pack per day. She denies recreational drug use. She does drink alcohol on occasion. REVIEW OF SYSTEMS: General: Negative for fevers, chills, or night sweats. No known anesthesia problems. HEENT: Negative for headache, lightheadedness, or syncopal episodes. Integumentary: Positive for a mild abrasion to the right forehead. Cardiothoracic: Negative for hypertension, chest pain, palpitations , or edema. Pulmonary: Negative for shortness of breath with exertion, chronic cough, or COPD. GI: Positive for constipation. Negative for nausea, vomiting, and diarrhea. Negative for GERD. : Positive for urinary frequency. Negative for urgency, history of UTIs, and kidney problems. Musculoskeletal: Positive for current complaint. Neurological: Negative for paresthesias, numbness, history of seizure, stroke, or epilepsy. Positive for mild cognitive impairment. Endocrine: Positive for diabetes. Negative for thyroid issues. Hematologic: Negative for easy bruising, anemia, excessive bleeding, history of DVT. Infectious Disease: Negative for history of MRSA, hepatitis C, HIV. PHYSICAL EXAMINATION GENERAL: Well-developed, well-nourished, 87-year-old female, in no acute distress. VITAL SIGNS: Height 5 feet 1 inch, pulse rate 71, blood pressure 110/60, weight 143 pounds. HEENT: Normocephalic, atraumatic. Pupils are equal, round, and reactive to light and accommodation. Extraocular movements are intact. Throat is clear. NECK: Supple. No palpable lymph nodes. PULMONARY: Lungs are clear to auscultation bilaterally. No wheezes, rales, or rhonchi. CARDIOVASCULAR: Regular rate and rhythm. No murmurs, rubs, or gallops. No edema. ABDOMEN: Positive bowel sounds, soft, nontender. NEUROLOGICAL: Alert and oriented x3. Cranial nerves II through XII are intact. Sensation is intact to light touch. MUSCULOSKELETAL: On exam of the left wrist, her arm is enclosed in a sugar- tong splint. She has some mild swelling and ecchymosis visible on the fingers. She has good movements in the fingers and sensation is intact. IMAGING STUDIES: X-rays, AP and lateral, of the left wrist post reduction show persistent apex volar angulation. IMPRESSION: Displaced left distal radius fracture. PLAN: The patient is scheduled to undergo an open reduction and internal fixation, left wrist, with Dr. Crowell on 02/08/18. She will return to the office 10 days postop for followup and suture removal. A prescription for Ultracet was e-scribed to the patient's pharmacy for postoperative pain management and she also has some Tylenol with Codeine that she was prescribed from the emergency department. She will use one or the other postoperatively. We will get cardiac clearance from her java software, Dr. Tomas, prior to proceeding with surgery. MAJOR STILL [id number]/[facility] #: [id number] JOHN
[~2018-02-08 07:27] MED LIST: Buffered Lidocaine 0.9% SYRIN* 5 ML/SYR SYRINGE INTRADERM ONE
[2018-02-08] MEDS ORDERED: ceFAZolin 2 GM PREMIX (*) 2 GM/50 ML BAG IVPB ONE (07:44)
[2018-02-08] MEDS ORDERED: Ondansetron INJ* 2 MG/ML VIAL IV PRN (10:06)
[2018-02-08] MEDS ORDERED: Acetaminophen TAB* 325 MG PO PRN (10:06)
[2018-02-08] MEDS ORDERED: Naloxone* 0.4 MG/ML 1 ML VIAL IV PRN (10:06)
[2018-02-08] MEDS ORDERED: DiMENhydriNATE IV* 50 MG/ML VIAL IV PUSH PRN (10:06)
[2018-02-08] MEDS ORDERED: fentaNYL* 50 MCG/ML 2 ML VIAL (100 MCG VIAL) IV PRN (10:06)
[2018-02-08] MEDS ORDERED: Nalbuphine* 20 MG/ML 1 ML VIAL IV PRN (10:06)
[2018-02-08 10:50] VITALS: BP 121/44
--- NOTE | 2018-02-08 12:23 | OP ---
CC: Yarelis Crowell MD* OPERATIVE REPORT: DATE OF OPERATION: 02/08/18 - MAT[place] DATE OF : 32 SURGEON: Yarelis Crowell MD. INOCULATOR: MAJOR Ann. ANESTHESIOLOGIST: Estuardo Denney MD. ANESTHESIA: Block. PRE-OP DIAGNOSIS: Comminuted extraarticular fracture of the left distal radius. POST-OP DIAGNOSIS: Comminuted extraarticular fracture of the left distal radius. OPERATIVE PROCEDURE: Open reduction internal fixation, left distal radius. ESTIMATED BLOOD LOSS: Zero. TOURNIQUET TIME: About 35 minutes. INDICATIONS: Kanwal is an 87-year-old female who has suffered a fracture of her left distal radius when she fell. Closed reduction was inadequate. She presents for ORIF of the distal radius. DESCRIPTION OF PROCEDURE: The patient was brought to the operating room, was given a sedation anesthetic and a block anesthetic. The skin of her left upper extremity was prepped and draped in the usual sterile fashion. The hand and forearm were exsanguinated and the tourniquet elevated to 250 mmHg. A longitudinal incision was made overlying the FCR tendon. We dissected sharply through the FCR tendon sheath both superficial and deep and the flexor pollicis longus muscle and tendon were retracted ulnarward. The pronator quadratus was subperiosteally dissected off the distal radius. The fracture fragments were reduced and position check on C-arm was found to be satisfactory. A Synthes 2.4 variable angle plate was then secured to the distal radius with 4 distal and 4 proximal screws. The position of the hardware and fracture fragments were checked on the C-arm in the AP and lateral views and found to be essentially anatomic. The wound was copiously irrigated with saline. The pronator quadratus was repaired over the plate with 2-0 Vicryl suture. The FCR tendon sheath was repaired with 2-0 Vicryl suture and the skin edges reapproximated with 4-0 nylon suture. The wound was dressed with Xeroform, 4x4s , Webril, and a volar splint. The patient tolerated the procedure well and was brought to the recovery room in good condition. [id number]/[facility] #: [id number] [facility]
--- NOTE | 2018-02-09 17:30 | RAD ---
CPT II Codes: G9500 Indication : Left wrist fracture. Traumatic. Fluoroscopic services provided for referring physician. 46 seconds of fluoroscopy time was used. 2 spot images demonstrates internal fixation distal radius fracture. IMPRESSION: Internal fixation distal radius fracture.
== END 2018-02-08 11:21 | disposition home or self-care (01) ==
LOC: OREAST 07:27
PROVIDERS: ATTEND Orthopaedic Surgery
DX: S52.552A Other extraarticular fracture of lower end of left radius, initial encounter for closed fracture (principal); E11.9 Type 2 diabetes mellitus without complications; Z79.84 Long term (current) use of oral hypoglycemic drugs; Z87.891 Personal history of nicotine dependence; E03.9 Hypothyroidism, unspecified; I10 Essential (primary) hypertension; E78.5 Hyperlipidemia, unspecified; M81.0 Age-related osteoporosis without current pathological fracture; R27.0 Ataxia, unspecified; W18.39XA Other fall on same level, initial encounter; Y92.89 Other specified places as the place of occurrence of the external cause
CPT/HCPCS: 76001; C1713; C1776; J0690

== ENCOUNTER 2019-08-08 09:31 | Emergency (ER) | payer MEDICARE, OTHER ==
--- OUTSIDE RECORDS SUMMARY | 2019-08-08 10:00 | XMS REPORT | Continuity of Care Document ---
:1930 External Reference #:[id number] Author Name Ganesh Byrd MD Address [address] [place] [address] Care Team Providers Name Role Phone Ganesh Byrd MD - Family Care Team Information Food Service Driver [phone] Medicine Problems Active Problems Provider Date Type 2 diabetes mellitus Gabrielle Galindo Onset: 09/23/2016 Hypothyroidism Na Ray M.D. Onset: 09/23/2016 Essential hypertension Na Ray M.D. Onset: 09/23/2016 Hyperlipidemia Na Ray M.D. Onset: 09/23/2016 Osteoporosis Na Ray M.D. Onset: 09/23/2016 Gout Tim Navarro M.D. Onset: 09/27/2017 Senile asthenia Tim Navarro M.D. Onset: 08/24/2017 Secondary cerebrovascular disease Tim Navarro M.D. Onset: 04/01/2017 Screening for malignant neoplasm of colon Tim Navarro M.D. Onset: 04/01 Glaucoma Tim Navarro M.D. Onset: 02/11/2017 Osteochondropathy Tim Navarro M.D. Onset: 02/11/2017 Social History Type Date Description Comments Sex Unknown Tobacco Use Start: Unknown End: Former Cigarette Smoker Unknown ETOH Use Denies alcohol use Tobacco Use Start: Unknown End: Patient is a former smoker Unknown Smoking Status Reviewed: 01/26/19 Patient is a former smoker Exercise Type/Frequency Does not exercise Exercise Type/Frequency usually watches tv during the day Allergies, Adverse Reactions, Alerts Active Allergies Reaction Severity Comments Date Fosamax 08/04/2016 Medications Active Medications SIG Qnty Indications Ordering Date Provider Freestyle Lite Test test twice a 100units Ganesh Cabrera 09/08/2017 day dx: e11.9 Henry Floyd Strips last office visit 09/27/17 Metformin HCL ER take 1 tablet 30tabs Canelo Robins, 02/11/2017 500mg by mouth every M.D. Tablets ER 24HR day Triamterene/Hydrochlor Take 1 Capsule 90caps Ganesh Cabrera othiazide By Mouth Every MD Rochelle 37.5-25mg Day Capsules Levothyroxine Sodium Take 1 Tablet 90tabs Ganesh Cabrera By Mouth Every MD Rochelle 50mcg Tablets Day Atorvastatin Calcium take 1 tablet 90tabs Ganesh Hussein 40mg by mouth every MD Rochelle Tablets day Aspir-81 1 by mouth Tim FHussein 81mg Tablets DR every day Henry Navarro Travatan Z 1 drop both Tim F. 0.004% eyes every Henry Navarro Solution night at bedtime Alphagan P 1 drop both Tim F. 0.15% Solution eyes 3 times Henry Navarro daily Dorzolamide HCL 1 drop both Tim F. 2% eyes twice Henry Navarro Solution daily Metoprolol Tartrate take 1 tablet 180tabs Ganesh Hussein 25mg by mouth two MD Rochelle Tablets times daily Vitamin D 1 po daily Unknown 2000Units Gel Medications Administered in Office Medication SIG Qnty Indications Ordering Provider Date TB Intradermal Test Tim Navarro M.D. 05/13/2017 Injection Immunizations CPT Code Status Date Vaccine Lot # [id number] Given 07/22/2017 Tdap Tetanus, W Pertussis [id number] Given 04/01/2017 Tdap Tetanus, W Pertussis [id number] Vital Signs Date Vital Result Comment 07/17/2019 3:12pm BP Systolic 124 mmHg BP Diastolic 80 mmHg Heart Rate 66 /min Body Temperature 97.9 F Respiratory Rate 16 /min Height 59 inches 4'11" Weight 145.00 lb BMI (Body Mass Index) 29.3 kg/m2 03/27/2019 3:18pm BP Systolic 120 mmHg BP Diastolic 62 mmHg Heart Rate 56 /min Body Temperature 97.9 F Respiratory Rate 16 /min Height 59 inches 4'11" Weight 138.00 lb BMI (Body Mass Index) 27.9 kg/m2 Results Test Date Facility Test Result H/L Range Note Laboratory test 07/17/2019 [facility] Hemoglobin A1c 6.3 % High 4.1- 5.7 finding (607)- - (Fma) Laboratory test 07/17/2019 [facility](fma) TSH <pending> 0.5-5.0 finding Laboratory test 01/26/2019 [facility] Hemoglobin A1c 6.1% % High 4.1 -5.7 finding (607)- - (Fma) Procedures Date Code Description Status 01/26/2019 23370 Finger Or Heel Stick Completed 08/23/2017 [id number] Mammogram Completed 03/01/2017 260531925 Bone Mineral Density Test Completed 08/19/2016 [id number] Mammogram Completed 10/18/2013 [id number] Colonoscopy Completed Medical Devices Description No Information Available Encounters Type Date Location Provider Dx Diagnosis Office Visit 03/27/2019 [facility] Ganesh Cabrera R45.89 Other symptoms and 3:30p MD Roc[place]le signs involving emotional state Office Visit 02/03/2019 [facility] Ganesh Cabrera R45.89 Other symptoms and 1:00p MD [place]le signs involving emotional state Office Visit 01/26/2019 [facility] Ganesh Cabrera Z00.00 Encntr for general 9:00a MD [place] adult medical exam w/o abnormal findings E11.9 Type 2 diabetes mellitus without complications E03.9 Hypothyroidism, unspecified Assessments Date Code Description Provider 07/17/2019 E11.9 Type 2 diabetes mellitus without Ganesh Byrd MD complications 07/17/2019 E03.9 Hypothyroidism, unspecified Ganesh Byrd MD 07/17/2019 I10 Essential (primary) hypertension Ganesh Byrd MD 03/27/2019 R45.89 Other symptoms and signs involving Ganesh Byrd MD emotional state 02/03/2019 R45.89 Other symptoms and signs involving Ganesh Byrd MD emotional state 01/26/2019 Z00.00 Encounter for general adult medical Ganesh Byrd MD examination without abno 01/26/2019 E11.9 Type 2 diabetes mellitus without Ganesh Byrd MD complications 01/26/2019 E03.9 Hypothyroidism, unspecified Ganesh Byrd MD Plan of Treatment Future Appointment(s):08/02/2019 3:00 pm - Ganesh Byrd MD at [facility]/17/2019 - Ganesh Byrd MDE11.9 Type 2 diabetes mellitus without complicationsComments:The patient was reminded to have regular Opthalmology exams , and check on blood pressure periodically.E03.9 Hypothyroidism, [id number] Essential (primary) hypertensionAllComments: Medication Management Patient Understands medications she's taking? Yes No Are there Barriers to Adherence? Yes No Has the patient been asked about herbal supplements and therapies, and OTC meds? Yes No Functional Status Description No Information Available Mental Status Description No Information Available Referrals Description No Information Available
--- OUTSIDE RECORDS SUMMARY | 2019-08-08 10:01 | XMS REPORT | Continuity of Care Document ---
:1930 External Reference #:[id number] Author Name Sergio Benavides NP (transmitted by agent of provider Aditi Castro) Address [address], [place] [address] Care Team Providers Name Role Phone Ganesh Byrd MD - Family Care Team Information Assistant Secretary Medicine Problems Active Problems Provider Date Carotid artery occlusion Brian Tomas M.D., [facility], Onset: 09/11/2013 FASNC Syncope and collapse Brian Tomas M.D., [facility], Onset: 08/29/2014 FASNC Difficulty breathing Brian Tomas M.D., [facility], Onset: 08/29/2014 FASNC 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., [facility], 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 Social History Type Date Description Comments Sex Unknown Tobacco Use Start: Unknown Former Cigarette End: Unknown Smoker Smoking Status Reviewed: 07/07/19 Former Cigarette Smoker ETOH Use Consumes 1 glass of wine per day Tobacco Use Start: Unknown Patient is a former quit smoking End: Unknown smoker 1989 Recreational Drug Use Denies Drug Use Exercise Type/Frequency Exercises regularly Exercise Type/Frequency walks Allergies, Adverse Reactions, Alerts Active Allergies Reaction Severity Comments Date Fosamax rash 08/29/2014 Inactive Allergies NKDA 04/04/2013 Medications Active Medications SIG Qnty Indications Ordering Provider Date Metformin HCL 1 po qd Estuardo Fofana, 12/07/2017 500mg Tablets M.D. Triamterene/Hydrochloro 1 po qd 90caps Unknown thiazide 37.5-25mg Capsules Atorvastatin Calcium 1 po qd 30tabs Unknown 40mg Tablets Metoprolol Tartrate 1 po bid 200tabs Unknown 25mg Tablets Levothyroxine Sodium 1 po qd 90tabs Unknown 50mcg Tablets Dorzolamide HCL/Timolol one drop both 10ml Unknown Maleate eyes bid 22.3-6.8mg/ml Solution Travatan Z 1 drop in both 5ml Unknown 0.004% Solution eyes daily Alphagan P 1 gtt both Unknown 0.1% Solution eyes twice daily Aspirin Low Dose 1 po qd 30tabs Unknown 81mg Tablets Medications Administered in Office Medication SIG Qnty Indications Ordering Provider Date Technetium TC 99M Brian Tomas M.D., 12/31/2014 Tetrofosmin, Per Unit Dose FACC, FASNC Up To 40 Millicuries Injection Immunizations Description No Information Available Vital Signs Date Vital Result Comment 07/07/2019 2:31pm Height 61 inches 5'1" Weight 144.00 lb Heart Rate 76 /min BP Systolic Sitting 133 mmHg BP Diastolic Sitting 70 mmHg Respiratory Rate 20 /min BMI (Body Mass Index) 27.2 kg/m2 04/19/2018 9:03am Height 61 inches 5'1" Weight 136.12 lb Heart Rate 68 /min BP Systolic 120 mmHg BP Diastolic 66 mmHg BMI (Body Mass Index) 25.7 kg/m2 Results Description No Information Available Procedures Description No Information Available Medical Devices Description No Information Available Encounters Description No Information Available Assessments Date Code Description Provider 07/07/2019 G31.84 Mild cognitive impairment, so stated Sergio Benavides NP 07/07/2019 R26.0 Ataxic gait Sergio Benavides NP Plan of Treatment Future Appointment(s):01/05/2020 2:30 pm - Sergio Benavides NP at [facility]07/07/2019 - Sergio Benavides NPG31.84 Mild cognitive impairment, so statedFollow up:SIX CIYKMGE18.0 Ataxic gait Functional Status Description No Information Available Mental Status Description No Information Available Referrals Description No Information Available
--- OUTSIDE RECORDS SUMMARY | 2019-08-08 10:01 | XMS REPORT | Continuity of Care Document ---
:1930 External Reference #:[id number] Author Name Brian Dan M.D. Address [address] [place] [address] Care Team Providers Name Role Phone Ganesh Byrd MD Care Team Information Translational Specialist [phone] Problems Active Problems Provider Date Presence of intraocular lens Brian Dan M.D. Onset: 05/24/2017 Bilateral primary open angle glaucoma Brian Dan M.D. Onset: 05/24/2017 Social History Type Date Description Comments Sex Unknown ETOH Use Occasionally consumes alcohol Tobacco Use Start: Unknown End: Unknown Patient is a former smoker Smoking Status Reviewed: 06/28/19 Patient is a former smoker Allergies, Adverse Reactions, Alerts Active Allergies Reaction Severity Comments Date Alendronate 05/24/2017 Medications Active Medications SIG Qnty Indications Ordering Date Provider Travatan Z one drop every 5units Yeyo Joiner, 06/15/2019 0.004% night at bedtime OD Solution both eyes Alphagan P 1 drop both eyes 10units Yeyo Joiner, 04/25/2019 0.1% Solution twice a day OD Vitamin D by mouth every Unknown 1000Unit day Tablets Calcium Unknown Metoprolol Tartrate Unknown 25mg Tablets Triamterene/Hydrochlor Unknown othiazide 37.5-25mg Capsules Levothyroxine Sodium Unknown 50mcg Tablets Atorvastatin Calcium Unknown 40mg Tablets Aspirin Adult Low take one Unknown Strength capsule/tablet 81mg Tablets DR daily by mouth Allopurinol Unknown 300mg Tablets Metformin HCL Unknown 500mg Tablets Immunizations Description No Information Available Vital Signs Date Vital Result Comment 06/28/2019 3:14pm Intraocular Pressure Right Eye 12 mmHg Intraocular Pressure Left Eye 12 mmHg 03/28/2019 2:55pm Intraocular Pressure Right Eye 15 mmHg Intraocular Pressure Left Eye 15 mmHg Results Description No Information Available Procedures Date Code Description Status 06/28/2019 36342 Fundus Photography W/Interpretation & Report Completed 06/28/2019 93739 Ophthalmoscopy Subsequent Completed 06/28/2019 41792 Eye Exam Est Comprehensive Completed 03/28/2019 98805 Oct, Optic Nerve Completed 03/28/2019 71919 Eye Exam Est Intermediate Completed 12/29/2018 65317 Visual Field Exam Extended, Unilateral Or Bilateral Completed 12/29/2018 98217 Eye Exam Est Intermediate Completed Medical Devices Description No Information Available Encounters Description No Information Available Assessments Date Code Description Provider 06/28/2019 H40.1133 Primary open-angle glaucoma, bilateral, Brian Dan M.D. severe stage 06/28/2019 Z96.1 Presence of intraocular lens Brian Dan M.D. 06/28/2019 E11.9 Type 2 diabetes mellitus without Brian Dan M.D. 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 severe stage Plan of Treatment Future Appointment(s):09/27/2019 3:30 pm - Brian Dan M.D. at [facility]6/28/2019 - Brian Dan M.D.H40.1133 Primary open-angle glaucoma, bilateral, severe xmocgI77.1 Presence of intraocular lensE11.9 Type 2 diabetes mellitus without complicationsFollow up:3 mos iopH35.3131 Nonexudative age- related macular degeneration, bilateral, early dry stage Functional Status Description No Information Available Mental Status Description No Information Available Referrals Description No Information Available
--- NOTE | 2019-08-08 10:39 | ED ---
GI/ HPI - HPI Summary HPI Summary: Pt is an 89 y/o F presenting to the ED with a chief complaint of rectal pain initially onset last night. She was unable to use the bathroom through last night and tonight, and the rectal pain became severe this morning. She has never taken stool softeners before. The nurse disimpacted the pts bowels, and she states she feels much better. She reports constipation and decreased intake of water. She denies fever or vomiting. - History of Current Complaint Chief Complaint: EDRectalPain Time Seen by Provider: 08/08/19 10:01 Stated Complaint: RECTUM PAIN PER PT Hx Obtained From: Patient Onset/Duration: Started Hours Ago, Still Present Timing: Constant, Lasting Hours Severity: Moderate Current Severity: Severe Pain Intensity: 9 Location of Pain: Rectal Associated Signs and Symptoms: Positive: Constipation. Negative: Vomiting, Fever Aggravating Factor(s): Nothing Alleviating Factor(s): Nothing - Allergy/Home Medications Allergies/Adverse Reactions: Allergies Allergy/AdvReac Type Severity Reaction Status Date / Time alendronate sodium Allergy Hives Verified 08/08/19 09:46 [From Fosamax] PMH/Surg Hx/FS Hx/Imm Hx Previously Healthy: Yes Endocrine/Hematology History: Reports: Hx Diabetes - TYPE II - ON ORAL MEDICATION FOR, Hx Thyroid Disease - UNDERACTIVE Cardiovascular History: Reports: Hx Hypertension - ON MEDICATION FOR Denies: Hx Pacemaker/ICD Respiratory History: Denies: Hx Asthma, Hx Chronic Obstructive Pulmonary Disease (COPD) GI History: Denies: Hx Ulcer History: Denies: Hx Dialysis, Hx Renal Disease Musculoskeletal History: Denies: Hx Osteoporosis Sensory History: Reports: Hx Contacts or Glasses - GLASSES, Hx Glaucoma - BILATERAL Denies: Hx Hearing Aid Opthamlomology History: Reports: Hx Contacts or Glasses - GLASSES, Hx Glaucoma - BILATERAL Neurological History: Reports: Other Neuro Impairments/Disorders - FALL RISK Psychiatric History: Denies: Hx Panic Disorder - Cancer History Hx Chemotherapy: No Hx Radiation Therapy: No - Surgical History Surgery Procedure, Year, and Place: 1971- HYSTERECTOMY. 2007 - GALLBLADDER. 2011 LASER -Lt EYE- FOR GLAUCOMA. cataracts. CARDIAC CATHS- NO STENTING. LEFT WRIST. Tooth extraction, 2018. TONSILS. 02/08 LEFT WRIST-PINS AND PLATES OKD PER DR SABRINA John Anesthesia Reactions: No - Immunization History Immunizations Up to Date: Yes Infectious Disease History: No Infectious Disease History: Denies: Hx Clostridium Difficile, Hx Hepatitis, Hx Human Immunodeficiency Virus (HIV), Hx of Known/Suspected MRSA, Hx Shingles, Hx Tuberculosis, Hx Known/ Suspected VRE, Hx Known/Suspected VRSA, History Other Infectious Disease, Traveled Outside the [place] in Last 30 Days - Family History Known Family History: Positive: Cardiac Disease, Hypertension - Social History Alcohol Use: Daily Alcohol Amount: 1 GLASS DAILY Hx Substance Use: No Substance Use Type: Reports: None Hx Tobacco Use: Yes Smoking Status (MU): Former Smoker Type: Cigarettes Amount Used/How Often: 1 PPD X 5 YEARS Have You Smoked in the Last Year: No Review of Systems Negative: Fever Positive: Other - constipation. Negative: Vomiting All Other Systems Reviewed And Are Negative: Yes Physical Exam - Summary Physical Exam Summary: Constitutional: Well-developed, Well-nourished, Alert. (-) Distressed Skin: Warm, Dry HENT: Normocephalic; Atraumatic Eyes: Conjunctiva normal Neck: Musculoskeletal ROM normal neck. (-) JVD, (-) Stridor, (-) Tracheal deviation Cardio: Rhythm regular, rate normal, Heart sounds normal; Intact distal pulses; Radial pulses are 2+ and symmetric. (-) Murmur Pulmonary/Chest wall: Effort normal. (-) Respiratory distress, (-) Wheezes, (-) Rales Abd: Soft, (-) tenderness, (-) Distension, (-) Guarding, (-) Rebound Musculoskeletal: (-) Edema Lymph: (-) Cervical adenopathy Neuro: Alert, Oriented x3 Psych: Mood and affect Normal Rectal: External hemorrhoids, not discolored Triage Information Reviewed: Yes Vital Signs On Initial Exam: Initial Vitals Temp Pulse Resp BP Pulse Ox 98.2 F 86 20 119/84 97 08/08/19 09:42 08/08/19 09:42 08/08/19 09:42 08/08/19 09:42 08/08/19 09:42 Vital Signs Reviewed: Yes Procedures - Sedation Patient Received Moderate/Deep Sedation with Procedure: No Diagnostics - Vital Signs Vital Signs Temp Pulse Resp BP Pulse Ox 08/08/19 09:42 98.2 F 86 20 119/84 97 - Laboratory Lab Statement: Any lab studies that have been ordered have been reviewed, and results considered in the medical decision making process. GIGU Course/Dx - Course Course Of Treatment: Patient is here with pain at her rectum. When the nurse evaluated patient, he noticed a large quantity of stool present and helped her pass the stool. Patient became asymptomatic after that. Patient does have to hemorrhoids on exam bed they're not thrombosed. Patient several constipation her life. Patient was given dietary recommendations for constipation. Patient is encouraged for further primary care doctor she continues to have recurrent episodes. - Diagnoses Provider Diagnoses: Constipation, Rectal pain Discharge ED - Sign-Out/Discharge Documenting (check all that apply): Patient Departure - Discharge Plan Condition: Stable Disposition: HOME Patient Education Materials: Constipation (ED), Rectal Pain (ED) Referrals: Ganesh Byrd MD [Primary Care Provider] - Additional Instructions: Please follow up with your primary care provider if an episode like this happens again. Stop drinking those Core drinks if you believe that they are what is causing constipation. Try to increase your water intake to help you have normal bowel movements. Return to the emergency department with any new or worsening symptoms. - Billing Disposition and Condition Condition: STABLE Disposition: Home - Attestation Statements Document Initiated by Linaibe: Yes Documenting Scribe: Jeanine Pritchard Provider For Whom Francisco Javier is Documenting (Include Credential): Dioni Maldonado MD. Scribe Attestation: Jeanine Thorpe, cliffed for Dioni Maldonado MD. on 08/08/19 at 1102. Scribe Documentation Reviewed: Yes Provider Attestation: The documentation as recorded by the Jeanine loco accurately reflects the service I personally performed and the decisions made by Dioni benjamin MD. Status of Scribe Document: Viewed
[2019-08-08 11:05] VITALS: BP 129/80
== END 2019-08-08 11:05 | disposition home or self-care (01) ==
LOC: ED 09:31
DX: K59.00 Constipation, unspecified (principal); K62.89 Other specified diseases of anus and rectum; E11.9 Type 2 diabetes mellitus without complications; Z79.84 Long term (current) use of oral hypoglycemic drugs; I10 Essential (primary) hypertension; Z91.81 History of falling; Z87.891 Personal history of nicotine dependence
CPT/HCPCS: 99282

== ENCOUNTER 2019-11-07 19:04 | Emergency (ER) | payer MEDICARE, OTHER ==
--- OUTSIDE RECORDS SUMMARY | 2019-11-07 19:16 | XMS REPORT | Continuity of Care Document ---
:1930 External Reference #:[id number] Author Name Brian Dan M.D. Address [address] [place] [address] Care Team Providers Name Role Phone Ganesh Byrd MD Care Team Information Campground Attendant [phone] Problems Active Problems Provider Date Presence of intraocular lens Brian Dan M.D. Onset: 05/24/2017 Bilateral primary open angle glaucoma Brian Dan M.D. Onset: 05/24/2017 Social History Type Date Description Comments Sex Unknown ETOH Use Occasionally consumes alcohol Tobacco Use Start: Unknown End: Unknown Patient is a former smoker Smoking Status Reviewed: 09/27/19 Patient is a former smoker Allergies, Adverse [...] Available Vital Signs Date Vital Result Comment 09/27/2019 3:29pm Intraocular Pressure Right Eye 12 mmHg Intraocular Pressure Left Eye 11 mmHg 06/28/2019 3:14pm Intraocular Pressure Right Eye 12 mmHg Intraocular Pressure Left Eye 12 mmHg Results Description No Information Available Procedures Date Code Description Status 09/27/2019 76015 Oct, Optic Nerve Completed 09/27/2019 14065 Eye Exam Est Intermediate Completed 06/28/2019 13719 Fundus Photography W/Interpretation & Report Completed 06/28/2019 62521 Ophthalmoscopy Subsequent Completed 06/28/2019 20844 Eye Exam Est Comprehensive Completed Medical Devices Description No Information Available Encounters Description No Information Available Assessments Date Code Description Provider 09/27/2019 H40.1133 Primary open-angle glaucoma, bilateral, Brian Dan M.D. severe stage 06/28/2019 Z96.1 Presence of intraocular lens Brian Dan M.D. 06/28/2019 E11.9 Type 2 diabetes mellitus without Brian Dan M.D. complications 06/28/2019 H40.1133 Primary open-angle glaucoma, bilateral, Brian Dan M.D. 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
--- NOTE | 2019-11-07 19:50 | ED ---
Adult Trauma - HPI Summary HPI Summary: Patient complains of mechanical fall 2 hours prior to arrival and complains of right shoulder pain and right knee pain. Denies any other pain, injury or symptoms including head injury, LOC, N/3, vision change, unilateral deficit. Gait instability at baseline per son. History of dementia. No anti-coag. Son denies change in mental status, change in gait, or any observable deficits. - History of Current Complaint Chief Complaint: EDFall Stated Complaint: FALL PER PT Time Seen by Provider: 11/07/19 19:47 Hx Obtained From: Patient, Family/Geology Scientist Mechanism of Injury: Fall Ambulatory at the Scene: Yes Loss of Consciousness: no loss of consciousness Onset/Duration: Started Hours Ago Onset of Pain: Immediate Onset Severity: Moderate Current Severity: Moderate Pain Intensity: 4 Pain Scale Used: 0-10 Numeric Location: Extremities Character: Aching Aggravating Factor(s): Movement Alleviating Factor(s): Rest Associated Signs & Symptoms: Positive: Negative - Allergy/Home Medications Allergies/Adverse Reactions: Allergies Allergy/AdvReac Type Severity Reaction Status Date / Time alendronate sodium Allergy Hives Verified 11/07/19 19:11 [From Fosamax] PMH/Surg Hx/FS Hx/Imm Hx Endocrine/Hematology History: Reports: Hx Diabetes - TYPE II - ON ORAL MEDICATION FOR, Hx Thyroid Disease - UNDERACTIVE Cardiovascular History: Reports: Hx Hypertension - ON MEDICATION FOR Denies: Hx Pacemaker/ICD Respiratory History: Denies: Hx Asthma, Hx Chronic Obstructive Pulmonary Disease (COPD) GI History: Denies: Hx Ulcer History: Denies: Hx Dialysis, Hx Renal Disease Musculoskeletal History: Denies: Hx Osteoporosis Sensory History: Reports: Hx Contacts or Glasses - GLASSES, Hx Glaucoma - BILATERAL Denies: Hx Hearing Aid Opthamlomology History: Reports: Hx Contacts or Glasses - GLASSES, Hx Glaucoma - BILATERAL Neurological History: Reports: Other Neuro Impairments/Disorders - FALL RISK Psychiatric History: Denies: Hx Panic Disorder - Cancer History Hx Chemotherapy: No Hx Radiation Therapy: No - Surgical History Surgery Procedure, Year, and Place: 1971- HYSTERECTOMY. 2007 - GALLBLADDER. 2011 LASER -Lt EYE- FOR GLAUCOMA. cataracts. CARDIAC CATHS- NO STENTING. LEFT WRIST. Tooth extraction, 2018. TONSILS. 02/08 LEFT WRIST-PINS AND PLATES OKD PER DR SABRINA John Anesthesia Reactions: No Infectious Disease History: No Infectious Disease History: Denies: Hx Clostridium Difficile, Hx Hepatitis, Hx Human Immunodeficiency Virus (HIV), Hx of Known/Suspected MRSA, Hx Shingles, Hx Tuberculosis, Hx Known/ Suspected VRE, Hx Known/Suspected VRSA, History Other Infectious Disease, Traveled Outside the [place] in Last 30 Days - Family History Known Family History: Positive: Cardiac Disease, Hypertension - Social History Alcohol Use: Daily Alcohol Amount: 1 GLASS DAILY Hx Substance Use: No Substance Use Type: Reports: None Hx Tobacco Use: Yes Smoking Status (MU): Former Smoker Type: Cigarettes Amount Used/How Often: 1 PPD X 5 YEARS Have You Smoked in the Last Year: No Review of Systems Constitutional: Negative Eyes: Negative ENT: Negative Cardiovascular: Negative Respiratory: Negative Gastrointestinal: Negative Genitourinary: Negative Musculoskeletal: Other Skin: Negative Neurological: Negative Psychological: Normal All Other Systems Reviewed And Are Negative: Yes Physical Exam - Summary Physical Exam Summary: No trauma noted to mouth, face, head. Range of motion of neck and jaw. No pain with palpation of spine. Full range of motion of left upper extremity at all joints. Full range of motion of right upper extremity at all joints with some pain and shoulder. Full range of motion of bilateral lower extremities at hip and knee. No swelling, deformity, ecchymosis, erythema noted to right knee. Neuro exam normal. Lung sounds clear to auscultation bilaterally. Abdomen soft nontender. Chest nontender. Triage Information Reviewed: Yes Vital Signs On Initial Exam: Initial Vitals Temp Pulse Resp BP Pulse Ox 99.1 F 74 16 199/110 99 11/07/19 19:04 11/07/19 19:04 11/07/19 19:04 11/07/19 19:04 11/07/19 19:04 Vital Signs Reviewed: Yes Appearance: Positive: Well-Appearing Skin: Positive: Warm Head/Face: Positive: Normal Head/Face Inspection Eyes: Positive: Normal ENT: Positive: Normal ENT inspection Dental: Negative: Dental Fracture @, Bleeding Neck: Positive: Supple Respiratory/Lung Sounds: Positive: Clear to Auscultation Cardiovascular: Positive: Normal Abdomen Description: Positive: Nontender Musculoskeletal: Positive: Normal Neurological: Positive: Normal Psychiatric: Positive: Normal AVPU Assessment: Alert - Divya Coma Scale Best Eye Response: 4 - Spontaneous Best Motor Response: 6 - Obeys Commands Best Verbal Response: 5 - Oriented Coma Scale Total: 15 Procedures - Sedation Patient Received Moderate/Deep Sedation with Procedure: No Diagnostics - Vital Signs Vital Signs Temp Pulse Resp BP Pulse Ox 11/07/19 19:04 99.1 F 74 16 199/110 99 - Laboratory Lab Statement: Any lab studies that have been ordered have been reviewed, and results considered in the medical decision making process. Adult Trauma Course/Dx - Course Course Of Treatment: Patient complains of mechanical fall 2 hours prior to arrival and complains of right shoulder pain and right knee pain. Denies any other pain, injury or symptoms including head injury, LOC, N/3, vision change, unilateral deficit. Gait instability at baseline per son. History of dementia. No anti-coag. Son denies change in mental status, change in gait, or any observable deficits. Vital signs within normal limits. No indication for x-ray of right knee. X-ray of right shoulder negative. - Diagnoses Provider Diagnoses: Fall, Shoulder pain, right Discharge ED - Sign-Out/Discharge Documenting (check all that apply): Patient Departure - Discharge Plan Condition: Stable Disposition: HOME Patient Education Materials: Shoulder Pain (ED) Referrals: Ganesh Byrd MD [Primary Care Provider] - Taurus Cornell MD [Medical Doctor] - Additional Instructions: You may take ibuprofen or Tylenol for right shoulder pain. If symptoms persist more than 1 week follow-up with orthopedics Dr. Cornell for further evaluation. - Billing Disposition and Condition Condition: STABLE Disposition: Home
[2019-11-07 20:50] VITALS: BP 158/71
== END 2019-11-07 20:49 | disposition home or self-care (01) ==
LOC: ED 19:04
DX: M25.511 Pain in right shoulder (principal); M25.561 Pain in right knee; W19.XXXA Unspecified fall, initial encounter; Y92.9 Unspecified place or not applicable; F03.90 Unspecified dementia, unspecified severity, without behavioral disturbance, psychotic disturbance, mood disturbance, and anxiety; E11.9 Type 2 diabetes mellitus without complications; Z79.84 Long term (current) use of oral hypoglycemic drugs; I10 Essential (primary) hypertension; Z88.8 Allergy status to other drugs, medicaments and biological substances; Z87.891 Personal history of nicotine dependence
CPT/HCPCS: 99282

== ENCOUNTER 2019-12-24 08:39 | Emergency (ER) | payer MEDICARE, OTHER ==
--- OUTSIDE RECORDS SUMMARY | 2019-12-24 08:51 | XMS REPORT | Continuity of Care Document ---
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 Medicine Problems Active Problems Provider Date Type [...] Metformin HCL ER take 1 tablet 30tabs Ganesh Cabrera 02/11/2017 500mg by mouth every MD Rochelle Tablets ER 24HR day Triamterene/Hydrochlor Take 1 Capsule 90caps Ganesh Cabrera othiazide By Mouth Every MD [place]le 37.5-25mg Day Capsules Levothyroxine Sodium Take 1 Tablet 90tabs Ganesh Cabrera By Mouth Every MD [place]le 50mcg Tablets Day Atorvastatin Calcium Take 1 Tablet 90tabs Ganesh Hussein 40mg By Mouth Every MD [place]le Tablets Day Aspir-81 1 by mouth Tim FHussein 81mg Tablets DR every day Henry Navarro Travatan Z 1 drop both Tim F. 0.004% eyes every Henry Navarro Solution night at bedtime Alphagan P 1 drop both Tim F. 0.15% Solution eyes 3 times Henry Navarro daily Dorzolamide HCL 1 drop both Tim F. 2% eyes twice Henry Navarro Solution daily Metoprolol Tartrate Take 1 Tablet 180[facility] By [facility] Two MD Rochelle Tablets Times Daily Vitamin D 1 po daily Unknown 2000Units Gel Medications Administered in Office Medication SIG Qnty Indications Ordering Provider Date TB Intradermal Test Tim Navarro M.D. 05/13/2017 Injection Immunizations CPT Code Status Date Vaccine Lot # [id number] Given 07/22/2017 Tdap Tetanus, W Pertussis [id number] Given 04/01/2017 Tdap Tetanus, W Pertussis [id number] Vital Signs Date Vital Result Comment 12/06/2019 2:33pm BP Systolic 122 mmHg BP Diastolic 74 mmHg Heart Rate 76 /min Body Temperature 97.3 F Respiratory Rate 16 /min Height 59 inches 4'11" Weight 137.00 lb BMI (Body Mass Index) 27.7 kg/m2 07/17/2019 3:12pm BP Systolic 124 mmHg BP Diastolic 80 mmHg Heart Rate 66 /min Body Temperature 97.9 F Respiratory Rate 16 /min Height 59 inches 4'11" Weight 145.00 lb BMI (Body Mass Index) 29.3 kg/m2 Results Test Acquired Date Facility Test Result H/L Range Note Laboratory test 12/06/2019 [facility] [place]([facility]) TSH <pending> 0.5-5.0 finding Laboratory test 12/06/2019 [facility] Hemoglobin A1c 5.9 % % High 4.1-5.7 finding (607)- - ([facility]) Laboratory test 07/17/2019 [facility] Hemoglobin A1c 6.3 % High 4.1- 5.7 finding (607)- - ([facility]) Laboratory test 07/17/2019 [facility]) TSH 2.56 mIU/L 0.50-6.00 finding Procedures Date Code Description Status 08/23/2017 [id number] Mammogram Completed 03/01/2017 [id number] Bone Mineral Density Test Completed 08/19/2016 [id number] Mammogram Completed 10/18/2013 [id number] Colonoscopy Completed Medical Devices Description No Information Available Encounters Type Date Location Provider Dx Diagnosis Office Visit 07/17/2019 [facility] Office Ganesh Cabrera E11.9 Type 2 diabetes 3:20p MD Roc[place]le mellitus without complications E03.9 Hypothyroidism, unspecified I10 Essential (primary) hypertension Assessments Date Code Description Provider 12/06/2019 F41.9 Anxiety disorder, unspecified Ganesh Byrd MD 12/06/2019 G31.84 Mild cognitive impairment, so stated Ganesh Byrd MD 12/06/2019 E11.9 Type 2 diabetes mellitus without Ganesh Byrd MD complications 12/06/2019 E03.9 Hypothyroidism, unspecified Ganesh Byrd MD 12/06/2019 I10 Essential (primary) hypertension Ganesh Byrd MD 07/17/2019 E11.9 Type 2 diabetes mellitus without Ganesh Byrd MD complications 07/17/2019 E03.9 Hypothyroidism, unspecified Ganesh Byrd MD 07/17/2019 I10 Essential (primary) hypertension Ganesh Byrd MD Plan of Treatment 12/06/2019 - Ganesh Byrd MDF41.9 Anxiety disorder, gonryscnualX03.84 Mild cognitive impairment, so tngekfJ70.9 Type 2 diabetes mellitus without ynwsyvhwdlmcfG33.9 Hypothyroidism, [id number] Essential (primary) hypertensionAllComments:Medication Management Patient Understands medications she's taking? Yes No Are there Barriers to Adherence? Yes No Has the patient been asked about herbal supplements and therapies, and OTC meds? Yes No Functional Status Description No Information Available Mental Status Description No Information Available Referrals Description No Information Available
--- OUTSIDE RECORDS SUMMARY | 2019-12-24 08:51 | XMS REPORT | Continuity of Care Document ---
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 Medicine Problems Active Problems Provider Date Type [...] Medications SIG Qnty Indications Ordering Date Provider Sertraline HCL 1 by mouth 30tabs F41.9 Ganesh THussein 12/20/2019 25mg every day MD [place]le Tablets Freestyle Lite Test test twice a 100units Ganesh CortezHussein 09/08/2017 day dx: e11.9 Henry Floyd Strips last office visit 09/27/17 Metformin HCL ER take 1 tablet 30tabs Ganesh Cabrera 02/11/2017 500mg by mouth every MD [place]le Tablets ER 24HR day Triamterene/Hydrochlor Take 1 Capsule [facility]caps [facility] Every MD [place]helle 37.5-25mg Day Capsules Levothyroxine Sodium Take 1 Tablet 90tabs Ganesh Hussein By Mouth Every MD [place]le 50mcg Tablets Day Atorvastatin Calcium Take 1 Tablet 90tabs [facility] 40mg By Mouth Every MD Rochelle Tablets [...] daily Metoprolol Tartrate Take 1 Tablet 180tabs [facility] By Mouth Two MD Rochelle Tablets Times Daily Vitamin D 1 po daily Unknown 2000Units Gel Medications Administered in Office Medication SIG Qnty Indications Ordering Provider Date TB Intradermal Test Tim Navarro M.D. 05/13/2017 Injection Immunizations CPT Code Status Date Vaccine Lot # [id number] Given 07/22/2017 Tdap Tetanus, W Pertussis 78131 Given 04/01/2017 Tdap Tetanus, W Pertussis [id number] Vital Signs Date Vital Result Comment 12/20/2019 3:19pm BP Systolic 142 mmHg BP Diastolic 84 mmHg Heart Rate 86 /min Body Temperature 97.9 F Respiratory Rate 16 /min Height 59 inches 4'11" Weight 135.00 lb BMI (Body Mass Index) 27.3 kg/m2 12/06/2019 2:33pm BP Systolic 122 mmHg BP Diastolic 74 mmHg Heart Rate 76 /min Body Temperature 97.3 F Respiratory Rate 16 /min Height 59 inches 4'11" Weight 137.00 lb BMI (Body Mass Index) 27.7 kg/m2 Results Test Acquired Date Facility Test Result H/L Range Note Laboratory test 12/06/2019 [facility]) TSH 1.61 mIU/L 0.50-6.00 finding Laboratory test 12/06/2019 [facility] Hemoglobin A1c 5.9 % % High 4.1-5.7 finding (607)- - (Fma) Laboratory test 07/17/2019 [facility] Hemoglobin A1c 6.3 % High 4.1- 5.7 finding (607)- - (Fma) Laboratory test 07/17/2019 [facility]) TSH 2.56 mIU/L 0.50-6.00 finding Procedures Date Code Description Status 08/23/2017 [id number] Mammogram Completed 03/01/2017 [id number] Bone Mineral Density Test Completed 08/19/2016 [id number] Mammogram Completed 10/18/2013 [id number] Colonoscopy Completed Medical Devices Description No Information Available Encounters Type Date Location Provider Dx Diagnosis Office Visit 12/06/2019 [facility] Ganesh Cabrera F41.9 Anxiety disorder, 3:00p MD [place]le unspecified G31.84 Mild cognitive impairment, so stated E11.9 Type 2 diabetes mellitus without complications E03.9 Hypothyroidism, unspecified I10 Essential (primary) hypertension Office Visit 07/17/2019 [facility] Ganesh Cabrera E11.9 Type 2 diabetes 3:20p Office MD [place]le mellitus without complications E03.9 Hypothyroidism, unspecified I10 Essential (primary) hypertension Assessments Date Code Description Provider 12/20/2019 F41.9 Anxiety disorder, unspecified Ganesh Byrd MD 12/20/2019 G31.84 Mild cognitive impairment, so stated Ganesh Byrd MD 12/20/2019 R29.6 Repeated falls Ganesh Byrd MD 12/06/2019 F41.9 Anxiety disorder, unspecified Ganesh Byrd [...] hypertension Ganesh Byrd MD Plan of Treatment Future Appointment(s):01/31/2020 3:40 pm - Ganesh Byrd MD at [facility]/20/2019 - Ganesh Byrd MDF41.9 Anxiety disorder, unspecifiedNew Medication:Sertraline HCL 25 mg - 1 by mouth every dayComments: let's start a medication to help with your irritability related to your memory. It does not help memory directly, but if you are more peaceful, your brain function will be much better.Follow up:4-6 baqnjA95.84 Mild cognitive impairment , so hoblhiU42.6 Repeated fallsAllComments:Medication Management Patient Understands medications she's taking? Yes No Are there Barriers to Adherence? Yes No Has the patient been asked about herbal supplements and therapies, and OTC meds? Yes No Functional Status Description No Information Available Mental Status Description No Information Available Referrals Description No Information Available
--- NOTE | 2019-12-24 09:10 | ED ---
Head Injury - HPI Summary HPI Summary: This patient is an 89-year-old female who presents to the ED with a head injury. Patient states she slipped last night, fell's, striking the back of her head. She is also endorsing a skin tear to the right elbow. Patient is denying any other symptoms. She states she did not lose consciousness. She denies any visual changes, confusion, memory loss, headache, neck pain. Denies any pain specifically, however states she feels somewhat "achy all over." She remains ambulatory. She states she was able to get up following the fall and was able to get to her bed where she slept. - History Of Current Complaint Chief Complaint: EDHeadInjury Stated Complaint: FALL-HEAD INJURY PER PT Time Seen by Provider: 12/24/19 08:51 Hx Obtained From: Patient Mechanism Of Injury: Direct Blow Onset/Duration: Started Hours Ago Severity Currently: None Pain Intensity: 4 Pain Scale Used: 0-10 Numeric Location of Head Injury: Occipital Associated Signs And Symptoms: Negative - Risk Factors SDH Risk Factor: Negative - Allergies/Home Medications Allergies/Adverse Reactions: Allergies Allergy/AdvReac Type Severity Reaction Status Date / Time alendronate sodium Allergy Hives Verified 12/24/19 08:45 [From Fosamax] Home Medications: Home Medications Aspirin EC TAB* [Aspirin Low Dose EC*] 81 mg PO QPM 01/14/13 [History Confirmed 12/24/19] Atorvastatin* [Lipitor*] 40 mg PO BEDTIME 01/14/13 [History Confirmed 12/24/19] Brimonidine P 0.1%(NF) [Alphagan 0.1% (NF)] 1 drop BOTH EYES TID 01/14/13 [ History Confirmed 12/24/19] Dorzolamide/Timolol OPTH (NF) [Cosopt (NF)] 1 drop BOTH EYES BID 01/14/13 [ History Confirmed 12/24/19] Levothyroxine TAB* [Synthroid 25 MCG TAB*] 50 mcg PO QAM 01/14/13 [History Confirmed 12/24/19] Metoprolol Tartrate TAB* [Lopressor TAB*] 25 mg PO BID 01/14/13 [History Confirmed 12/24/19] Travoprost 0.004% (NF) [Travatan Z (NF)] 1 drop BOTH EYES BEDTIME 01/14/13 [ History Confirmed 12/24/19] Triamterene/HCTZ 37.5-25 MG* [Dyazide*] 1 cap PO QAM 01/14/13 [History Confirmed 12/24/19] Acetaminophen [Eq 8Hr Arthritis Pain Rel] 2 tab PO DAILY PRN 02/03/18 [History Confirmed 12/24/19] Cholecalciferol (Vitamin D3) [Vitamin D3] 2,000 unit PO QAM 02/03/18 [History Confirmed 12/24/19] metFORMIN* [Glucophage 500 MG TAB *] 500 mg PO QAM 02/03/18 [History Confirmed 12/24/19] PMH/Surg Hx/FS Hx/Imm Hx Previously Healthy: Yes Endocrine/Hematology History: Reports: Hx Diabetes - TYPE II - ON ORAL MEDICATION FOR, Hx Thyroid Disease - UNDERACTIVE Cardiovascular History: Reports: Hx Hypertension - ON MEDICATION FOR Denies: Hx Pacemaker/ICD Respiratory History: Denies: Hx Asthma, Hx Chronic Obstructive Pulmonary Disease (COPD) GI History: Denies: Hx Ulcer History: Denies: Hx Dialysis, Hx Renal Disease Musculoskeletal History: Denies: Hx Osteoporosis Sensory History: Reports: Hx Contacts or Glasses - GLASSES, Hx Glaucoma - BILATERAL Denies: Hx Hearing Aid Opthamlomology History: Reports: Hx Contacts or Glasses - GLASSES, Hx Glaucoma - BILATERAL Neurological History: Reports: Other Neuro Impairments/Disorders - FALL RISK Psychiatric History: Denies: Hx Panic Disorder - Cancer History Hx Chemotherapy: No Hx Radiation Therapy: No - Surgical History Surgery Procedure, Year, and Place: 1971- HYSTERECTOMY. 2007 - GALLBLADDER. 2011 LASER -Lt EYE- FOR GLAUCOMA. cataracts. CARDIAC CATHS- NO STENTING. LEFT WRIST. Tooth extraction, 2018. TONSILS. 02/08 LEFT WRIST-PINS AND PLATES OKD PER DR SABRINA John Anesthesia Reactions: No - Immunization History Date of Influenza Vaccine: 10/18/2019 Hx Pertussis Vaccination: No Immunizations Up to Date: Yes Infectious Disease History: No Infectious Disease History: Denies: Hx Clostridium Difficile, Hx Hepatitis, Hx Human Immunodeficiency Virus (HIV), Hx of Known/Suspected MRSA, Hx Shingles, Hx Tuberculosis, Hx Known/ Suspected VRE, Hx Known/Suspected VRSA, History Other Infectious Disease, Traveled Outside the [place] in Last 30 Days - Family History Known Family History: Positive: Cardiac Disease, Hypertension - Social History Occupation: Unemployed Lives: Alone Alcohol Use: Daily Alcohol Amount: 1 GLASS DAILY Hx Substance Use: No Substance Use Type: Reports: None Hx Tobacco Use: Yes Smoking Status (MU): Former Smoker Type: Cigarettes Amount Used/How Often: 1 PPD X 5 YEARS Have You Smoked in the Last Year: No Review of Systems Negative: Fever, Chills, Fatigue, Skin Diaphoresis Negative: Palpitations, Chest Pain Negative: Shortness Of Breath, Cough Genitourinary: Negative Positive: no symptoms reported, see HPI Negative: Arthralgia, Myalgia Positive: Other - small laceration to the back of head Negative: Headache, Weakness, Paresthesia, Numbness, Syncope, Slurred Speech Psychological: Normal All Other Systems Reviewed And Are Negative: Yes Physical Exam Triage Information Reviewed: Yes Vital Signs On Initial Exam: Initial Vitals Temp Pulse Resp BP Pulse Ox 98.4 F 73 16 155/91 100 12/24/19 08:42 12/24/19 08:42 12/24/19 08:42 12/24/19 08:42 12/24/19 08:42 Vital Signs Reviewed: Yes Appearance: Positive: Well-Appearing, Well-Nourished Skin: Positive: Warm, Skin Color Reflects Adequate Perfusion, Other - small skin tear to the R elbow Head/Face: Positive: Normal Head/Face Inspection Eyes: Positive: EOMI, FELIX, Conjunctiva Clear Neck: Positive: Supple, No Lymphadenopathy Respiratory/Lung Sounds: Positive: Clear to Auscultation, Breath Sounds Present Cardiovascular: Positive: RRR, Pulses are Symmetrical in both Upper and Lower Extremities Musculoskeletal: Positive: Normal, Strength/ROM Intact Neurological: Positive: Speech Normal Psychiatric: Positive: Normal, Affect/Mood Appropriate AVPU Assessment: Alert Procedures - Sedation Patient Received Moderate/Deep Sedation with Procedure: No Diagnostics - Vital Signs Vital Signs Temp Pulse Resp BP Pulse Ox 12/24/19 08:53 68 161/79 100 12/24/19 08:52 70 100 12/24/19 08:42 98.4 F 73 16 155/91 100 - Laboratory Lab Statement: Any lab studies that have been ordered have been reviewed, and results considered in the medical decision making process. Head Injury Course/Dx Course Of Treatment: This patient is evaluated for head injury which occurred last night. She is having no symptoms at this time. She denies any headache, visual changes, memory loss, confusion. Denies any neck pain. She has a small skin tear to the right elbow, but denies any other symptoms. She states she believes her head had bled last evening, but denies any bleeding currently. Patient denied any headache last night. She is not on blood thinners. CT brain obtained: No acute findings. Cleansed wound to the R elbow. Bandage applied. - Diagnoses Provider Diagnoses: Skin tear, Head injury Discharge ED - Sign-Out/Discharge Documenting (check all that apply): Patient Departure - Discharge Plan Condition: Stable Disposition: HOME Patient Education Materials: Head Injury (ED) Referrals: Ganesh Byrd MD [Primary Care Provider] - Additional Instructions: Wash hair as normal Use a towel over your pillow at night - Billing Disposition and Condition Condition: STABLE Disposition: Home
[2019-12-24 10:19] VITALS: BP 108/73
== END 2019-12-24 10:18 | disposition home or self-care (01) ==
LOC: ED 08:39
DX: S09.90XA Unspecified injury of head, initial encounter (principal); S51.011A Laceration without foreign body of right elbow, initial encounter; E11.9 Type 2 diabetes mellitus without complications; I10 Essential (primary) hypertension; W01.10XA Fall on same level from slipping, tripping and stumbling with subsequent striking against unspecified object, initial encounter; Y92.9 Unspecified place or not applicable; Z79.82 Long term (current) use of aspirin; Z79.84 Long term (current) use of oral hypoglycemic drugs; Z87.891 Personal history of nicotine dependence; W19.XXXA Unspecified fall, initial encounter
CPT/HCPCS: 70450; 99283